=== PATIENT | female | born 1930 | race Caucasian/White ===

== ENCOUNTER 2018-09-26 14:10 | Inpatient (IN) ==
[2018-09-26] MEDS ORDERED: Sodium Chlor 0.9% Inj 500 ML IV.SIG ONE (14:46)
--- NOTE | 2018-09-26 14:59 | ED ---
HPI General Chief complaint: Weakness Stated complaint: Weakness Time Seen by Provider: 09/26/18 14:15 Source: patient and RN notes reviewed Mode of arrival: ambulatory Limitations: no limitations History of Present Illness HPI Narrative: 88-year-old female presents to the emergency department sent from [facility] for evaluation of generalized weakness. Patient had a pacemaker placed in [facility] on Sunday and was transferred on Sunday to the rehab facility. She states that yesterday she started with a stomachache, chills and she slept all day. She denies any fever. She states she has been having these intermittent stomachaches recently. She has recently had an endoscopy in May which she states showed polyps which were removed. She states that she is generally weak today. She states that she normally is generally weak after she has a stomach aches. She denies any headache. No visual changes. She denies any chest pain or shortness of breath. No palpitations. She denies any current abdominal pain. She denies nausea, vomiting, diarrhea. She states she had a bowel movement this morning and denies blood in her stool. 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 She does have history of CAD, GERD, CHF, A. fib. Moderate severity. MD Complaint: Reports generalized weakness Onset (ago): day(s) (1) Duration: constant Location: Reports generalized Migration: Reports none Severity: moderate Relieving factors: none Exacerbating factors: none Context: Reports recent illness Associated symptoms: Reports denies other symptoms; Denies chest pain, confusion , dark stools, diaphoresis, dysuria, easy bruising, fever/chills, headaches, loss of appetite, nausea/vomiting, myalgias, rash, shortness of breath and syncope Related Data Home Medications Medication Instructions Recorded Confirmed Lactobacillus acidoph-pectin 1 tab PO DAILY 09/26/18 09/26/18 alendronate [Fosamax] 70 mg PO QWEEK 09/26/18 09/26/18 apixaban [Eliquis] 5 mg PO BID 09/26/18 09/26/18 aspirin 81 mg PO DAILY 09/26/18 09/26/18 bisacodyl [Dulcolax (bisacodyl)] 10 mg DC DAILY PRN 09/26/18 09/26/18 cetirizine [Zyrtec] 10 mg PO DAILY 09/26/18 09/26/18 lisinopril 10 mg PO DAILY 09/26/18 09/26/18 magnesium citrate [Citroma] 296 ml PO QAM PRN 09/26/18 09/26/18 magnesium hydroxide [Milk of 30 ml PO HS PRN 09/26/18 09/26/18 Magnesia] metoprolol tartrate 25 mg PO BID 09/26/18 09/26/18 multivitamin with minerals 1 tab PO DAILY 09/26/18 09/26/18 omeprazole 20 mg PO DAILY 09/26/18 09/26/18 polyethylene glycol 3350 [GlycoLax] 17 gm PO DAILY 09/26/18 09/26/18 sodium phosphates [Enema 118 ml DC DAILY 09/26/18 09/26/18 Disposable] ursodiol 300 mg PO DAILY 09/26/18 09/26/18 Allergies Allergy/AdvReac Type Severity Reaction Status Date / Time Sulfa (Sulfonamide Allergy Rash Verified 09/26/18 14:19 Antibiotics) Review of Systems ROS: all other systems reviewed are negative [facility] Medical History Medical History Pacemaker (Acute) Dyspnea (Acute) Edema (Acute) GERD (gastroesophageal reflux disease) (Acute) Heart failure (Acute) Hypertension (Acute) Nonrheumatic aortic (valve) stenosis (Acute) Osteoporosis (Acute) Paroxysmal atrial fibrillation (Acute) Rheumatoid arthritis (Acute) Unsteadiness on feet (Acute) Weakness (Acute) Family History Family History Other CVA (cerebral vascular accident) Family history of acute myocardial infarction Social History Social History Substance History: No History of Abuse Second Hand Smoke Exposure: No Smoking Status: Never smoker How Often Do You Have a Drink Containing Alcohol: Never Hx Recent Travel: No Recent Travel in [facility] within the Last 8 Weeks: No Recent Out of Country Travel within the Last 8 Weeks: No Immunization History Tetanus Immunization: Unsure Exam Narrative Exam Narrative: GENERAL: Well-nourished, well-developed elderly female patient, afebrile SKIN: Focused skin assessment warm/dry. HEAD: Normocephalic. Atraumatic. EYES: No scleral icterus. No injection or drainage. NECK: Supple, trachea midline. No JVD or lymphadenopathy. CARDIOVASCULAR: Regular rate and rhythm without murmurs, gallops, or rubs. Bilateral radial and pedal pulses are 2+ RESPIRATORY: Breath sounds equal bilaterally. No accessory muscle use. Lung sounds are clear to auscultation GASTROINTESTINAL: Abdomen soft, non-tender, nondistended. MUSCULOSKELETAL: No cyanosis, or edema. Bilateral upper and lower extremity strength 5/5. All extremities are neurovascularly intact. BACK: Nontender without obvious deformity. No CVA tenderness. Course Initial Documented Vital Signs Temperature 97.8 F 09/26/18 14:19 Pulse Rate 59 L 09/26/18 14:19 Respiratory Rate 17 09/26/18 14:19 Blood Pressure 133/64 09/26/18 14:19 Pulse Oximetry 100 09/26/18 14:19 Last Documented Vital Signs Temperature 97.5 F L 09/28/18 00:00 Pulse Rate 60 09/28/18 00:00 Respiratory Rate 16 09/28/18 00:00 Blood Pressure 144/65 H 09/28/18 00:00 Pulse Oximetry 96 09/28/18 00:00 Medical Decision Making BEAR Attestation BEAR supervised visit: Yes Attestation: No signs of acute surgical abdomen MDM Narrative Medical decision making narrative: consideration for ERCP given the suspicion for choledocholithiasis based on [id number] female presents to the emergency department for evaluation of generalized weakness that started yesterday. She reports having a stomachache with history of the same in the past. She states she generally feels weak afterwards. She denies any other symptoms at this time. She does appear well. EKG shows electronic atrial pacemaker, heart rate 59. IV access obtained. CBC, CMP, lipase, magnesium, CK, troponin, PTT, PT/ INR are ordered and pending. Chest x-ray, CT abdomen/pelvis without contrast ordered and pending. Patient is given normal saline 500 mL bolus. CBC shows slight anemia with hemoglobin 10.4, hematocrit 30.6. CMP shows BUN 19 , creatinine 1.15, hyperglycemia 115, bilirubin 1.1, AST 159, ALT 179, alkaline phosphatase 528. Lipase is 84. Magnesium is 2.0. CK is 33. Troponin is 0.05. PTT is 29.6. PT/INR is 11.8/1.2. Chest x-ray shows no acute cardiopulmonary disease, left-sided pacemaker. CT abdomen/pelvis shows Round hyperdensity in the expected region of the distal common bile duct measuring 16 mm consistent with probable choledocholithiasis. ERCP would be helpful for further evaluation and possible treatment of this finding if clinically indicated; Dilatation and pneumobilia involving the central intrahepatic and extrahepatic dilatation is seen; Multiple calcified nonobstructing left renal calculi; Bilateral renal cysts; Small umbilical hernia; Uncomplicated colonic diverticulosis; Degenerative changes and scoliosis of the thoracolumbar spine are noted; Grade I anterolisthesis of L5 in relation to S1; Degenerative changes involving the hips are noted bilaterally; Coronary artery calcifications ; Chronic interstitial changes involving the visualized lung bases. Ultrasound of the gallbladder is completed which shows the common bile duct is dilated to 14 mm, though the distal common bile duct cannot be visualized due to shadowing from bowel gas, recommend, cholecystectomy, right upper pole renal cyst. I discussed the case with attending physician's, Dr. Galdamez's PAAnjelica. She accepted patient for admission. General surgery is paged for consultation. I spoke to Dr. Duval who recommends MRCP, consult GI. Medical Screen Exam Complete: Yes Emergency Medical Condition: Yes Differential Diagnosis Differential Diagnosis: dehydration vs. electrolyte abnormality vs. ACS vs. UTI Medical Records Medical records reviewed: Yes I reviewed the patient's medical records. Lab Data Result diagrams: 09/26/18 14:55 09/26/18 14:55 Lab Results 09/26/18 09/26/18 09/26/18 Range/Units 14:55 14:55 14:55 WBC 7.4 (4.0-11.0) th/mm3 RBC 3.30 L (4.00-5.30) mil/mm3 Hgb 10.4 L (11.6-15.3) gm/dL Hct 30.6 L (35.0-46.0) % MCV 92.7 (80.0-100.0) fL MCH 31.6 (27.0-34.0) pg MCHC 34.0 (32.0-36.0) % RDW 14.6 (11.6-17.2) % Plt Count 195 (150-450) th/mm3 MPV 8.0 (7.0-11.0) fL Neut % (Auto) 73.6 H (16.0-70.0) % Lymph % (Auto) 17.2 (9.0-44.0) % [place] % (Auto) 8.3 H (0.0-8.0) % Eos % (Auto) 0.4 (0.0-4.0) % Baso % (Auto) 0.5 (0.0-2.0) % Neut # (Auto) 5.5 (1.8-7.7) th/mm3 Lymph # (Auto) 1.3 (1.0-4.8) th/mm3 [place] # (Auto) 0.6 (0.0-0.9) th/mm3 Eos # (Auto) 0.0 (0.0-0.4) th/mm3 Baso # (Auto) 0.0 (0.0-0.2) th/mm3 WBC Differential . Differential Comment Auto diff final PT 11.8 H (9.8-11.6) sec INR 1.2 Ratio APTT 29.6 (23.4-31.7) sec Sodium 137 (136-145) meq/L Potassium 4.2 (3.5-5.1) meq/L Chloride 106 (98-107) meq/L Carbon Dioxide 25.6 (21.0-32.0) meq/L Anion Gap 5 (5-15) meq/L BUN 19 H (7-18) mg/dL Creatinine 1.15 H (0.50-1.00) mg/dL Estimated GFR 45 L (>89) mL/min Random Glucose 115 H (74-106) mg/dL Calcium 8.4 L (8.5-10.1) mg/dL Magnesium 2.0 (1.5-2.5) mg/dL Total Bilirubin 1.1 H (0.2-1.0) mg/dL AST 159 H (15-37) U/L ALT 179 H (10-53) U/L Alkaline Phosphatase 528 H (45-117) U/L Total Creatine Kinase 33 (26-192) U/L Troponin I 0.05 (0.02-0.05) ng/mL Total Protein 6.6 (6.4-8.2) g/dL Albumin 2.5 L (3.4-5.0) g/dL Lipase 84 (73-393) U/L Urine Color (Yellw/Straw) Urine Clarity (Clear) Urine pH (5.0-8.5) Ur Specific [place] (1.002-1.035) Urine Protein (Neg-Trace) mg/dL Urine Glucose (UA) (Negative) mg/dL Urine Ketones (Negative) mg/dL Urine Occult Blood (Negative) Urine Nitrate (Negative) Urine Bilirubin (Negative) Urine Urobilinogen (Less than 2) mg/dL Ur Leukocyte Esterase (Negative) Urine RBC (0-3) /hpf Urine WBC (0-5) /hpf Urine Mucus (Occasional) /lpf Micro UA Comment Ur Microscopic Review Urine Culture Comments 09/26/18 Range/Units 17:34 WBC (4.0-11.0) th/mm3 RBC (4.00-5.30) mil/mm3 Hgb (11.6-15.3) gm/dL Hct (35.0-46.0) % MCV (80.0-100.0) fL MCH (27.0-34.0) pg MCHC (32.0-36.0) % RDW (11.6-17.2) % Plt Count (150-450) th/mm3 MPV (7.0-11.0) fL Neut % (Auto) (16.0-70.0) % Lymph % (Auto) (9.0-44.0) % [place] % (Auto) (0.0-8.0) % Eos % (Auto) (0.0-4.0) % Baso % (Auto) (0.0-2.0) % Neut # (Auto) (1.8-7.7) th/mm3 Lymph # (Auto) (1.0-4.8) th/mm3 [place] # (Auto) (0.0-0.9) th/mm3 Eos # (Auto) (0.0-0.4) th/mm3 Baso # (Auto) (0.0-0.2) th/mm3 WBC Differential Differential Comment PT (9.8-11.6) sec INR Ratio APTT (23.4-31.7) sec Sodium (136-145) meq/L Potassium (3.5-5.1) meq/L Chloride (98-107) meq/L Carbon Dioxide (21.0-32.0) meq/L Anion Gap (5-15) meq/L BUN (7-18) mg/dL Creatinine (0.50-1.00) mg/dL Estimated GFR (>89) mL/min Random Glucose (74-106) mg/dL Calcium (8.5-10.1) mg/dL Magnesium (1.5-2.5) mg/dL Total Bilirubin (0.2-1.0) mg/dL AST (15-37) U/L ALT (10-53) U/L Alkaline Phosphatase (45-117) U/L Total Creatine Kinase (26-192) U/L Troponin I (0.02-0.05) ng/mL Total Protein (6.4-8.2) g/dL Albumin (3.4-5.0) g/dL Lipase (73-393) U/L Urine Color Yellow (Yellw/Straw) Urine Clarity Clear (Clear) Urine pH 5.0 (5.0-8.5) Ur Specific [place] 1.016 (1.002-1.035) Urine Protein Negative (Neg-Trace) mg/dL Urine Glucose (UA) Negative (Negative) mg/dL Urine Ketones Negative (Negative) mg/dL Urine Occult Blood Negative (Negative) Urine Nitrate Negative (Negative) Urine Bilirubin Negative (Negative) Urine Urobilinogen 0.2 (Less than 2) mg/dL Ur Leukocyte Esterase Negative (Negative) Urine RBC 2 (0-3) /hpf Urine WBC Less than 1 (0-5) /hpf Urine Mucus Few H (Occasional) /lpf Micro UA Comment Cath-culture not ind Ur Microscopic Review Not Reportable Urine Culture Comments Cath-cult not ind Imaging Data Radiologist's impression: Abdomen/Pelvis CT 09/26/18 14:46 CONCLUSION: 1. Round hyperdensity in the expected region of the distal common bile duct measuring 16 mm consistent with probable choledocholithiasis. ERCP would be helpful for further evaluation and possible treatment of this finding if clinically indicated. 2. Dilatation and pneumobilia involving the central intrahepatic and extrahepatic dilatation is seen. 3. Multiple calcified nonobstructing left renal calculi. 4. Bilateral renal cysts. 5. Small umbilical hernia. 6. Uncomplicated colonic diverticulosis. 7. Degenerative changes and scoliosis of the thoracolumbar spine are noted. 8. Grade I anterolisthesis of L5 in relation to S1. 9. Degenerative changes involving the hips are noted bilaterally. 10. Coronary artery calcifications. 11. Chronic interstitial changes involving the visualized lung bases. Chest X-Ray 09/26/18 14:46 CONCLUSION: 1. No acute cardiopulmonary disease. 2. Left-sided pacemaker. Gallbladder Ultrasound 09/26/18 15:39 CONCLUSION: 1. The common bile duct is dilated to 14 mm, though the distal common bile duct cannot be visualized due to shadowing from bowel gas. Recommend consideration for ERCP given the suspicion for choledocholithiasis based on CT. 2. Cholecystectomy. 3. Right upper pole renal cyst. Discharge Plan Discharge Disposition Patient Disposition: ED Admit(ED Internal Use Only) Discharge Order Discharge Orders: ED Use Only Admit Order (Routine); Ordered 09/26/18 Ordered By: Nilsa Bhandari Discharge Details Diagnosis: Choledocholithiasis Physicians Team ED Provider: Westley Shirley ED Midlevel Provider: Nilsa Bhandari Primary Care Provider: SARAH, Attending Provider: Luis Fernando Galdamez Other Providers: Scarlett Parada ; Prasanth Duval ; [facility] Status ED Status: Left Department Discharge Information Discharge Date/Time: 09/26/18 20:20
--- NOTE | 2018-09-26 15:08 | XR ---
EXAM DATE: 09/26/2018 3:02 PM EST AGE/SEX: 88 years / Female INDICATIONS: Short of breath and weakness. CLINICAL DATA: This is the patient's initial encounter. Patient reports that signs and symptoms have been present for 1 day and indicates a pain score of 0/10. MEDICAL/SURGICAL HISTORY: None. Pacemaker. COMPARISON: No prior exams available for comparison. FINDINGS: A single AP view of the chest demonstrates the lungs to be symmetrically aerated without evidence of mass, infiltrate or effusion. Left-sided pacemaker placement with 2 intact leads. Pulmonary vasculari ty normal. Heart normal in size The cardiomediastinal contours are unremarkable. Osseous structures are intact. CONCLUSION: 1. No acute cardiopulmonary disease. 2. Left-sided pacemaker. Electronically signed by: Kamron Churchill MD Board Certified Radiologist 09/26/2018 3:06 PM EST
[2018-09-26 15:10] LABS: Baso % (Auto) 0.5 % (0.0-2.0); Eos % (Auto) 0.4 % (0.0-4.0); Hematocrit 30.6 % (35.0-46.0); Hemoglobin 10.4 gm/dL (11.6-15.3); Lymph # (Auto) 1.3 th/mm3 (1.0-4.8); Lymph % (Auto) 17.2 % (9.0-44.0); Mean Corpuscular Hemoglobin 31.6 pg (27.0-34.0); Mean Corpuscular Volume 92.7 fL (80.0-100.0); Mono # (Auto) 0.6 th/mm3 (0.0-0.9); Mono % (Auto) 8.3 % (0.0-8.0); Neut # (Auto) 5.5 th/mm3 (1.8-7.7); Neut % (Auto) 73.6 % (16.0-70.0); Platelet Count 195 th/mm3 (150-450); Red Cell Distribution Width 14.6 % (11.6-17.2); White Blood Count 7.4 th/mm3 (4.0-11.0)
[2018-09-26 15:23] LABS: Activated Partial Thrombo Time 29.6 sec (23.4-31.7); INR 1.2 Ratio; Prothrombin Time 11.8 sec (9.8-11.6)
--- NOTE | 2018-09-26 15:29 | CT ---
EXAM DATE: 09/26/2018 3:15 PM EST AGE/SEX: 88 years / Female INDICATIONS: Pacemaker placed Sunday, complains of weakness since yesterday CLINICAL DATA: This is the patient's initial encounter. Patient reports that signs and symptoms have been present for 4 - 6 days and indicates a pain score of 0/10. MEDICAL/SURGICAL HISTORY: Hypertension. Gastroesophageal reflux disease. Pacemaker. Cholecyst ectomy. RADIATION DOSE: 19.13 CTDI (mGy) COMPARISON: No prior exams available for comparison. TECHNIQUE: Multiple contiguous axial images were obtained through the abdomen. Images were obtained using multiple row detector helical technique. Using automated exposure control and adjustment of the mA and/or kV according to patient size, radiation dose was kept as low as reasonably achievable to o btain optimal diagnostic quality images. DICOM format image data is available electronically for rev iew and comparison. FINDINGS: Lower Lungs: Chronic interstitial changes are noted involving the visualized lung bases. Coronary art popeye calcifications are noted. Liver: There is evidence of pneumobilia as well as dilatation of the central intrahepatic and extrahe patic biliary system. Round hyperdensity in the expected region of the distal common bile duct measur ing 16 mm consistent with probable choledocholithiasis. ERCP would be helpful for further evaluation and possible treatment of this finding if clinically indicated. Spleen: Multiple calcified granulomas are noted within the spleen. Pancreas: Unremarkable without mass or calcification. Kidneys: Multiple calcified nonobstructing left renal calculi are noted with the largest measuring 4 mm. Bilateral renal cysts are noted with the largest on the left measuring 5.6 cm. No hydronephrosis is noted. Adrenal Glands: Unremarkable. Aorta: The aorta and proximal iliac vessels are grossly unremarkable without aneurysmal dilation. Bowel/Mesentery: Uncomplicated colonic diverticulosis is noted. Abdominal Wall: Small umbilical hernia containing only fat is noted. Retroperitoneum: No evidence of adenopathy in the retrocrural, para-aortic, or deep pelvic regions. Bladder: Contours are smooth. Reproductive Organs: No abnormal masses or calcifications seen. Inguinal: The inguinal region is unremarkable without evidence of adenopathy. Bony Structures: Degenerative changes and scoliosis of the thoracolumbar spine are noted. Degenerati ve changes involving the hips are noted bilaterally. Grade I anterolisthesis of L5 in relation to S1. CONCLUSION: 1. Round hyperdensity in the expected region of the distal common bile duct measuring 16 mm consiste nt with probable choledocholithiasis. ERCP would be helpful for further evaluation and possible treat ment of this finding if clinically indicated. 2. Dilatation and pneumobilia involving the central intrahepatic and extrahepatic dilatation is seen . 3. Multiple calcified nonobstructing left renal calculi. 4. Bilateral renal cysts. 5. Small umbilical hernia. 6. Uncomplicated colonic diverticulosis. 7. Degenerative changes and scoliosis of the thoracolumbar spine are noted. 8. Grade I anterolisthesis of L5 in relation to S1. 9. Degenerative changes involving the hips are noted bilaterally. 10. Coronary artery calcifications. 11. Chronic interstitial changes involving the visualized lung bases. Electronically signed by: Devaughn Quintanilla MD Board Certified Radiologist 09/26/2018 3:28 PM EST
[2018-09-26 15:45] LABS: Alanine Aminotransferase 179 U/L (10-53); Albumin 2.5 g/dL (3.4-5.0); Anion Gap 5 meq/L (5-15); Aspartate Aminotransferase 159 U/L (15-37); Blood Urea Nitrogen 19 mg/dL (7-18); Calcium 8.4 mg/dL (8.5-10.1); Carbon Dioxide 25.6 meq/L (21.0-32.0); Chloride 106 meq/L (98-107); Glomerular Filtration Rate 45 mL/min (>89); Glucose,Random 115 mg/dL (74-106); Lipase 84 U/L (73-393); Potassium 4.2 meq/L (3.5-5.1); Sodium 137 meq/L (136-145)
[2018-09-26 15:46] LABS: Alkaline Phosphatase 528 U/L (45-117); Total Protein 6.6 g/dL (6.4-8.2); Troponin I 0.05 ng/mL (0.02-0.05)
[2018-09-26 15:47] LABS: Creatine Kinase 33 U/L (26-192)
--- NOTE | 2018-09-26 16:27 | US ---
EXAM DATE: 09/26/2018 4:20 PM EST AGE/SEX: 88 years / Female INDICATIONS: Pain and abnormal prior imaging. CLINICAL DATA: This is the patient's initial encounter. Patient reports that signs and symptoms have been present for 2 days and indicates a pain score of 3/10. MEDICAL/SURGICAL HISTORY: Gastroesophageal reflux disease. Hypertension. Rheumatoid arthritis . Dyspnea, Edema, Heart Failure, Nonrheumatic Aortic valve stenosis, Osteoporosis, Pacemaker, Paroxy smal Atrial Fibrillation, Weakness. . COMPARISON: [facility], CT ABDOMEN & PELVIS W/O CONTRAST, 09/26/2018. . MEASUREMENTS: Liver:__ 14.5 cm. Common Bile Duct:__ 14 mm. Right kidney: 10.3 x 5.5 x 4.9 cm. FINDINGS: Liver: Echogenicity is within normal limits. No focal lesion identified. Portal Vein: Hepatopedal flow seen in portal vein. Common Duct: The common bile duct is dilated to 14 mm. The distal common bile duct is not visualized due to shadowing from bowel gas. Gallbladder: Surgically absent. Pancreas: The visualized portions are within normal limits. Right Kidney: The lower pole of the right kidney is visualized due to shadowing from bowel gas. No h ydronephrosis. There is a 2.8 cm upper pole cyst. Other: None. CONCLUSION: 1. The common bile duct is dilated to 14 mm, though the distal common bile duct cannot be visualized due to shadowing from bowel gas. Recommend consideration for ERCP given the suspicion for choledocho lithiasis based on CT. 2. Cholecystectomy. 3. Right upper pole renal cyst. Electronically signed by: Tejal Bosch MD Board Certified Radiologist 09/26/2018 4:26 PM EST
[2018-09-26] MEDS ORDERED: Bisacodyl 10 MG Supp RECTAL PRN (17:07)
[2018-09-26] MEDS ORDERED: Piperacil/Tazo 3.375 GM Premix 3.375 GM/50 ML PIGGYBACK IV.SIG ONE (18:11)
[2018-09-26] MEDS ORDERED: Acetaminophen 325 MG Tablet PO PRN (18:37)
[2018-09-26 18:38] LABS: Bilirubin,Urine Negative (Negative); Color,Urine Yellow (Yellw/Straw); Glucose,Urine (UA) Negative (Negative); Leukocyte Esterase,Urine Negative (Negative); Mucus,Urine Few /lpf (Occasional); Nitrite,Urine Negative (Negative); Specific Gravity,Urine 1.016 (1.002-1.035)
[2018-09-26 18:39] LABS: Clarity,Urine Clear (Clear)
[2018-09-26 18:40] LABS: Urobilinogen,Urine 0.2 mg/dL (Less than 2)
--- NOTE | 2018-09-26 19:23 | ECG ---
Date Performed: 09/26/2018 Time Performed: 14:26:35 PTAGE: 88 years EKG: ELECTRONIC ATRIAL PACEMAKER ABNORMAL RHYTHM ECG NO PREVIOUS TRACING DOCTOR: Josr Galloway Interpretating Date/Time 09/26/2018 19:21:57
[2018-09-26] MEDS: Metoprolol Tartrate 25 MG Tablet PO SCH (21:20)
[2018-09-27] MEDS: Metoprolol Tartrate 25 MG Tablet PO SCH ×2 (09:24→20:39)
[2018-09-27] MEDS: Lactobacillus Acidophilus/L. Spores Tablet PO SCH (09:24)
[2018-09-27] MEDS: Lisinopril 10 MG Tablet PO SCH (09:25)
[2018-09-27] MEDS: Pantoprazole Sodium 20 MG DR Tablet PO SCH (09:25)
[2018-09-27] MEDS: Multivitamin/Minerals Therapeutic Tablet PO SCH (09:25)
--- NOTE | 2018-09-27 09:59 | P.HPFP ---
History of Present Illness Service: Family Medicine Primary Care Physician: UNKNOWN Chief Complaint: Back pain History of Present Illness: 88-year-old female presents to the emergency department sent from [facility] for evaluation of generalized weakness. Patient had a pacemaker placed in [facility] on Sunday and was transferred on Sunday to the rehab facility. She states that yesterday she started with a stomachache , chills and she slept all day. She denies any fever. She states she has been having these intermittent stomachaches and back pains recently. She has recently had an endoscopy in May which she states showed polyps which were removed. She states that she is generally weak today. She states that she normally is generally weak after she has a stomach aches. She denies any headache. No visual changes. She denies any chest pain or shortness of breath. No palpitations. She denies any current abdominal pain. She denies nausea, vomiting, diarrhea. She states she had a bowel movement this morning and denies blood in her stool. 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 She does have history of CAD, GERD, CHF, A. fib. Moderate severity. - Diagnosis (1) Choledocholithiasis Inpatient Certification: I certify that the inpatient services were ordered in accordance with Medicare regulations governing the order. This includes certification that hospital inpatient services are reasonable and necessary and in the case of services not specified as inpatient-only under 42 CFR 419.22(n), that they are appropriately provided as inpatient services in accordance to with the 2-midnight benchmark under 43 CFR 412.3(e) Estimated Total Length of Stay (Days): 3 Plans for Post Hospital Care: SNF Review of Systems Constitutional: Reports daytime sleepiness, Reports lack of energy, Reports weakness Eyes: Denies blurry vision Ears, Nose, Mouth, and Throat: Denies abnormal hearing, Denies difficulty swallowing, Denies headache(s) Cardiovascular: Denies chest pain, Denies lightheadedness Respiratory: Denies chest congestion, Denies cough Gastrointestinal: Reports abdominal pain, Reports nausea, Denies black, tarry stools, Denies bright, red blood in stools Genitourinary: Denies blood in urine, Denies painful urination Musculoskeletal: Reports muscle weakness Neurologic: Reports unsteadiness, Denies abnormal movements, Denies convulsions , Denies tingling/numbness/burning sensations, Denies tremor(s) Psychiatric: Denies confusion, Denies depression PMFSH - History History Provided By: Patient - Medical History Medical History: Medical History (Last Updated 09/27/18 @ 09:54 by Darian Gardiner) Pacemaker (Acute) Dyspnea Edema GERD (gastroesophageal reflux disease) Heart failure Hypertension Nonrheumatic aortic (valve) stenosis Osteoporosis Paroxysmal atrial fibrillation Rheumatoid arthritis Unsteadiness on feet Weakness - Surgical History Surgical History: Surgical History (Last Reviewed 09/27/18 @ 09:56 by Darian Gardiner) H/O aortic valve replacement S/P cholecystectomy - Social History I have reviewed the patient's Social History: Yes - Tobacco History Second Hand Smoke Exposure: No Tobacco Use In Past 30 Days: No Smoking Status: Never smoker - Alcohol History How Often Do You Have a Drink Containing Alcohol: Never - Substance Use History Substance History: No History of Abuse - Travel History History of Recent Travel: No Recent Travel in the [place] Within the Last 8 Weeks: No Recent Travel Out of the Country Within the Last 8 Weeks: No - Immunization History Tetanus Immunization: Unsure Hx Influenza Vaccine This Season: Yes Medications and Allergies Active Medications: Active Medications Acetaminophen (Tylenol) 650 mg PO Q4H PRN PRN Reason: Temp > 100.4 Al Hydroxide/Mg Hydroxide (Milk Of Magnmónica Liq) 30 ml PO HS PRN PRN Reason: If no BM in 3 days Apixaban (Eliquis) 5 mg PO BID [facility] Last Admin: 09/27/18 09:26 Dose: Not Given Aspirin (Ecotrin) 81 mg PO DAILY [facility] Last Admin: 09/27/18 09:25 Dose: 81 mg Bisacodyl (Dulcolax Supp) 10 mg RECTAL DAILY PRN PRN Reason: Constipation Cetirizine HCl (Zyrtec) 10 mg PO DAILY [facility] Last Admin: 09/27/18 09:25 Dose: 10 mg Lactobacillus Acidophilus (Lactinex) 1 tab PO DAILY [facility] Last Admin: 09/27/18 09:24 Dose: 1 tab Lisinopril (Prinivil) 10 mg PO DAILY [facility] Last Admin: 09/27/18 09:25 Dose: 10 mg Metoprolol Tartrate (Lopressor) 25 mg PO BID [facility] Last Admin: 09/27/18 09:24 Dose: 25 mg Multivitamins/Minerals (Theragran-M) 1 tab PO DAILY [facility] Last Admin: 09/27/18 09:25 Dose: 1 tab Ondansetron HCl (Zofran Inj) 4 mg IV.PUSH Q6H PRN PRN Reason: NAUSEA OR VOMITING Pantoprazole Sodium (Protonix) 20 mg PO DAILY [facility] Last Admin: 09/27/18 09:25 Dose: 20 mg Sodium Chloride (Ns Flush) 2 ml IV.FLUSH PRN PRN PRN Reason: FLUSH AFTER USING IV ACCESS Sodium Chloride (Ns Flush) 2 ml IV.FLUSH BID [facility] Last Admin: 09/27/18 09:25 Dose: 2 ml Sodium Chloride (Ns Flush) 2 ml IV.FLUSH PRN PRN PRN Reason: FLUSH AFTER USING IV ACCESS Ursodiol (Actigall) 300 mg PO DAILY [facility] Last Admin: 09/27/18 09:25 Dose: 300 mg Allergies Allergy/AdvReac Type Severity Reaction Status Date / Time Sulfa (Sulfonamide Allergy Rash Verified 09/26/18 14:19 Antibiotics) Home Medications Medication Instructions Recorded Confirmed Type Lactobacillus acidoph-pectin 1 tab PO DAILY 09/26/18 09/26/18 History alendronate [Fosamax] 70 mg PO QWEEK 09/26/18 09/26/18 History apixaban [Eliquis] 5 mg PO BID 09/26/18 09/26/18 History aspirin 81 mg PO DAILY 09/26/18 09/26/18 History bisacodyl [Dulcolax (bisacodyl)] 10 mg AK DAILY PRN 09/26/18 09/26/18 History cetirizine [Zyrtec] 10 mg PO DAILY 09/26/18 09/26/18 History lisinopril 10 mg PO DAILY 09/26/18 09/26/18 History magnesium citrate [Citroma] 296 ml PO QAM PRN 09/26/18 09/26/18 History magnesium hydroxide [Milk of 30 ml PO HS PRN 09/26/18 09/26/18 History Magnesia] metoprolol tartrate 25 mg PO BID 09/26/18 09/26/18 History multivitamin with minerals 1 tab PO DAILY 09/26/18 09/26/18 History omeprazole 20 mg PO DAILY 09/26/18 09/26/18 History polyethylene glycol 3350 [GlycoLax] 17 gm PO DAILY 09/26/18 09/26/18 History sodium phosphates [Enema 118 ml AK DAILY 09/26/18 09/26/18 History Disposable] ursodiol 300 mg PO DAILY 09/26/18 09/26/18 History Exam Vital signs: Vital Signs 09/26/18 14:19 09/26/18 14:35 09/26/18 14:46 Temperature 97.8 F Pulse Rate 59 L 60 Respiratory Rate 17 Blood Pressure 133/64 Pulse Oximetry 100 99 09/26/18 17:09 09/26/18 19:41 09/26/18 20:46 Temperature 97.3 F L Pulse Rate 60 60 60 Respiratory Rate 16 17 17 Blood Pressure 153/66 H 148/69 H 167/72 H Pulse Oximetry 99 97 96 09/27/18 00:00 09/27/18 04:33 09/27/18 08:00 Temperature 98.5 F 98.4 F 97.7 F Pulse Rate 60 60 60 Respiratory Rate 16 16 16 Blood Pressure 160/72 H 148/71 H 155/72 H Pulse Oximetry 94 L 96 95 Intake & Output 09/26/18 09/27/18 09/27/18 18:59 06:59 18:59 Intake Total 550 / 550 Balance 550 / 550 Weight 70.307 kg 70 kg Intake: IV 550 / 550 Zosyn 3.375 GM Premix 3.375 gm 50 / 50 In 50 ml @ 100 mls/hr IV.SIG ONCE ONE Rx#:[id number] NS Inj 500 ML @ Wide Open IV. 500 / 500 SIG BOLUS ONE Rx#:[id number] Other: # Voids 4 # Bowel Movements 1 Weight On Admission 70.307 kg - Constitutional no acute distress - Routine HEENT Exam Head: Present: normocephalic, atraumatic Eye: Present: PERRL, normal accommodation ENT: Present: mucous membranes moist - Routine Neck Exam Present: supple, full ROM - Routine Respiratory Exam Present: CTA bilaterally - Routine Cardiovascular Exam Present: RRR, S1, S2, murmur - Routine Abdominal Exam Present: soft, normoactive bowel sounds - Routine Extremities Exam Absent: cyanosis, edema - Routine Skin Exam Present: intact - Routine Neurological Exam Present: alert, oriented X3 Results - Labs Result diagrams: 09/26/18 14:55 09/26/18 14:55 Abnormal lab results 09/26/18 09/26/18 09/26/18 Range/Units 14:55 14:55 14:55 RBC 3.30 L (4.00-5.30) mil/mm3 Hgb 10.4 L (11.6-15.3) gm/dL Hct 30.6 L (35.0-46.0) % Neut % (Auto) 73.6 H (16.0-70.0) % [place] % (Auto) 8.3 H (0.0-8.0) % PT 11.8 H (9.8-11.6) sec BUN 19 H (7-18) mg/dL Creatinine 1.15 H (0.50-1.00) mg/dL Estimated GFR 45 L (>89) mL/min Random Glucose 115 H (74-106) mg/dL Calcium 8.4 L (8.5-10.1) mg/dL Total Bilirubin 1.1 H (0.2-1.0) mg/dL AST 159 H (15-37) U/L ALT 179 H (10-53) U/L Alkaline Phosphatase 528 H (45-117) U/L Albumin 2.5 L (3.4-5.0) g/dL Urine Mucus (Occasional) /lpf 09/26/18 Range/Units 17:34 RBC (4.00-5.30) mil/mm3 Hgb (11.6-15.3) gm/dL Hct (35.0-46.0) % Neut % (Auto) (16.0-70.0) % [place] % (Auto) (0.0-8.0) % PT (9.8-11.6) sec BUN (7-18) mg/dL Creatinine (0.50-1.00) mg/dL Estimated GFR (>89) mL/min Random Glucose (74-106) mg/dL Calcium (8.5-10.1) mg/dL Total Bilirubin (0.2-1.0) mg/dL AST (15-37) U/L ALT (10-53) U/L Alkaline Phosphatase (45-117) U/L Albumin (3.4-5.0) g/dL Urine Mucus Few H (Occasional) /lpf Short CBC 09/26/18 Range/Units 14:55 WBC 7.4 (4.0-11.0) th/mm3 Hgb 10.4 L (11.6-15.3) gm/dL Hct 30.6 L (35.0-46.0) % Plt Count 195 (150-450) th/mm3 BMP 09/26/18 14:55 Sodium 137 Potassium 4.2 Chloride 106 Carbon Dioxide 25.6 BUN 19 H Creatinine 1.15 H Calcium 8.4 L Cardiac Enzymes 09/26/18 Range/Units 14:55 Total Creatine Kinase 33 (26-192) U/L Troponin I 0.05 (0.02-0.05) ng/mL Liver Function 09/26/18 Range/Units 14:55 Total Bilirubin 1.1 H (0.2-1.0) mg/dL AST 159 H (15-37) U/L ALT 179 H (10-53) U/L Alkaline Phosphatase 528 H (45-117) U/L Albumin 2.5 L (3.4-5.0) g/dL Urine 09/26/18 Range/Units 17:34 Urine Color Yellow (Yellw/Straw) Urine Clarity Clear (Clear) Urine pH 5.0 (5.0-8.5) Ur Specific [place] 1.016 (1.002-1.035) Urine Protein Negative (Neg-Trace) mg/dL Urine Glucose (UA) Negative (Negative) mg/dL - Imaging Impressions Abdomen/Pelvis CT 09/26/18 14:46 CONCLUSION: 1. Round hyperdensity in the expected region of the distal common bile duct measuring 16 mm consistent with probable choledocholithiasis. ERCP would be helpful for further evaluation and possible treatment of this finding if clinically indicated. 2. Dilatation and pneumobilia involving the central intrahepatic and extrahepatic dilatation is seen. 3. Multiple calcified nonobstructing left renal calculi. 4. Bilateral renal cysts. 5. Small umbilical hernia. 6. Uncomplicated colonic diverticulosis. 7. Degenerative changes and scoliosis of the thoracolumbar spine are noted. 8. Grade I anterolisthesis of L5 in relation to S1. 9. Degenerative changes involving the hips are noted bilaterally. 10. Coronary artery calcifications. 11. Chronic interstitial changes involving the visualized lung bases. Chest X-Ray 09/26/18 14:46 CONCLUSION: 1. No acute cardiopulmonary disease. 2. Left-sided pacemaker. Gallbladder Ultrasound 09/26/18 15:39 CONCLUSION: 1. The common bile duct is dilated to 14 mm, though the distal common bile duct cannot be visualized due to shadowing from bowel gas. Recommend consideration for ERCP given the suspicion for choledocholithiasis based on CT. 2. Cholecystectomy. 3. Right upper pole renal cyst. Caprini VTE Risk Assessment Caprini VTE Risk Assessment: Moderate/High Risk (score >= 2) Caprini Risk Assessment Model: Point Value = 1 Point Value = 2 Point Value = 3 Point Value = 5 Age 41-60 Minor surgery BMI > 25 kg/m2 Swollen legs Varicose veins or History of unexplained or recurrent spontaneous Oral contraceptives or hormone replacement Sepsis (< 1 month) Serious lung disease, including pneumonia (< 1 month) Abnormal pulmonary function Acute myocardial infarction Congestive heart failure (< 1 month) History of inflammatory bowel disease Medical patient at bed rest Age 61-74 Arthroscopic surgery Major open surgery (> 45 min) Laparoscopic surgery (> 45 min) Malignancy Confined to bed (> 72 hours) Immobilizing plaster cast Central venous access Age >= 75 History of VTE Family history of VTE Factor V Leiden Prothrombin [id number] Lupus anticoagulant Anticardiolipin antibodies Elevated serum homocysteine Heparin-induced thrombocytopenia Other congenital or acquired thrombophilia Stroke (< 1 month) Elective arthroplasty Hip, pelvis, or leg fracture Acute spinal cord injury (< 1 month) Prophylaxis Regimen: Total Risk Factor Score Risk Level Prophylaxis Regimen 0-1 Low Early ambulation 2 Moderate Order ONE of the following: *Sequential Compression Device (SCD) *Heparin 5000 units SQ BID 3-4 Higher Order ONE of the following medications: *Heparin 5000 units SQ TID *Enoxaparin/Lovenox 40 mg SQ daily (WT < 150 kg, CrCl > 30 mL/min) *Enoxaparin/Lovenox 30 mg SQ daily (WT < 150 kg, CrCl > 10-29 mL/min) *Enoxaparin/Lovenox 30 mg SQ BID (WT < 150 kg, CrCl > 30 mL/min) AND/OR *Sequential Compression Device (SCD) 5 or more Highest Order ONE of the following medications: *Heparin 5000 units SQ TID (Preferred with Epidurals) *Enoxaparin/Lovenox 40 mg SQ daily (WT < 150 kg, CrCl > 30 mL/min) *Enoxaparin/Lovenox 30 mg SQ daily (WT < 150 kg, CrCl > 10-29 mL/min) *Enoxaparin/Lovenox 30 mg SQ BID (WT < 150 kg, CrCl > 30 mL/min) AND *Sequential Compression Device (SCD) Assessment and Plan - Assessment (1) Choledocholithiasis Code(s): K80.50 - Calculus of bile duct without cholangitis or cholecystitis without obstruction Status: Acute Plan: ERCP today. - Assessment and Plan ERCP today per GI/Surgery for choledochocholelithiasis Discussed Condition With: patient H&P: Quality - VTE Deep Vein Thrombosis/Pulmonary Embolism Present on Admission: No
--- NOTE | 2018-09-27 10:37 | P.CONGI ---
History of Present Illness Consult date: 09/27/18 Consult reason: Choledocholithiasis Chief complaint: Choledocholithiasis History of Present Illness: Patient is a pleasant 88-year-old female with past medical history significant for GERD, heart failure, hypertension, aortic valve stenosis, osteoporosis, pacemaker, atrial fibrillation and rheumatoid arthritis. Surgical history significant for aortic valve replacement, partial hysterectomy , bladder repair, cholecystectomy, pacemaker insertion and multiple ERCPs(on Ursodiol daily). Patient presented to [facility] emergency room from her custodial facility with report of intermittent abdominal pain with chills and generalized weakness. Patient states that she has been having what she describes to be a dull aching intermittent right upper quadrant abdominal pain since March 2018. Patient endorsed accompanying weakness with nausea. Presently she denies abdominal pain or nausea. Patient states last EGD done in May 2019 out of state in [place] with unremarkable findings. Last colonoscopy per patient was done in 2014 where she underwent perforated bowel with surgical repair. CT scan on arrival showed common bile duct dilatation to 16 mm. Of note, patient endorses that she currently takes Eliquis, last dose 06/2019 8 AM. Our service has been consulted to evaluate patient for ERCP due to choledocholithiasis. <Lorraine Beal - Last Filed: 09/27/18 10:47> Review of Systems All other systems reviewed negative except as stated in HPI <Lorraine Beal - Last Filed: 09/27/18 10:47> PMFSH - History History Provided By: Patient - Medical History Medical History: Medical History (Last Updated 09/27/18 @ 09:54 by Darian Gardiner) Pacemaker (Acute) Dyspnea Edema GERD (gastroesophageal reflux disease) Heart failure Hypertension Nonrheumatic aortic (valve) stenosis Osteoporosis Paroxysmal atrial fibrillation Rheumatoid arthritis Unsteadiness on feet Weakness - Surgical History Surgical History: Surgical History (Last Reviewed 09/27/18 @ 09:56 by Darian Gardiner) H/O aortic valve replacement S/P cholecystectomy - Family History Family History: Family History (Last Updated 09/27/18 @ 09:55 by Darian Gardiner) Other CVA (cerebral vascular accident) Family history of acute myocardial infarction - Tobacco History Second Hand Smoke Exposure: No Tobacco Use In Past 30 Days: No Smoking Status: Never smoker - Alcohol History How Often Do You Have a Drink Containing Alcohol: Never - Substance Use History Substance History: No History of Abuse - Travel History History of Recent Travel: No Recent Travel in the [place] Within the Last 8 Weeks: No Recent Travel Out of the Country Within the Last 8 Weeks: No - Immunization History Tetanus Immunization: Unsure Hx Influenza Vaccine This Season: Yes <Lorraine Beal - Last Filed: 09/27/18 10:47> - Medical History Medical History: Medical History (Last Updated 09/27/18 @ 09:54 by Darian Gardiner) Pacemaker (Acute) Dyspnea Edema GERD (gastroesophageal reflux disease) Heart failure Hypertension Nonrheumatic aortic (valve) stenosis Osteoporosis Paroxysmal atrial fibrillation Rheumatoid arthritis Unsteadiness on feet Weakness - Surgical History Surgical History: Surgical History (Last Reviewed 09/27/18 @ 09:56 by Darian Gardiner) H/O aortic valve replacement S/P cholecystectomy - Family History Family History: Family History (Last Updated 09/27/18 @ 09:55 by Darian Gardiner) Other CVA (cerebral vascular accident) Family history of acute myocardial infarction <Scarlett Parada - Last Filed: 09/27/18 12:36> Medications and Allergies Active Medications: Active Medications Acetaminophen (Tylenol) 650 mg PO Q4H PRN PRN Reason: Temp > 100.4 Al Hydroxide/Mg Hydroxide (Milk Of Erica Kohli) 30 ml PO HS PRN PRN Reason: If no BM in 3 days Apixaban (Eliquis) 5 mg PO BID [facility] Last Admin: 09/27/18 09:26 Dose: Not Given Aspirin (Ecotrin) 81 mg PO DAILY [facility] Last Admin: 09/27/18 09:25 Dose: 81 mg Bisacodyl (Dulcolax Supp) 10 mg RECTAL DAILY PRN PRN Reason: Constipation Cetirizine HCl (Zyrtec) 10 mg PO DAILY [facility] Last Admin: 09/27/18 09:25 Dose: 10 mg Lactobacillus Acidophilus (Lactinex) 1 tab PO DAILY [facility] Last Admin: 09/27/18 09:24 Dose: 1 tab Lisinopril (Prinivil) 10 mg PO DAILY [facility] Last Admin: 09/27/18 09:25 Dose: 10 mg Metoprolol Tartrate (Lopressor) 25 mg PO BID [facility] Last Admin: 09/27/18 09:24 Dose: 25 mg Multivitamins/Minerals (Theragran-M) 1 tab PO DAILY [facility] Last Admin: 09/27/18 09:25 Dose: 1 tab Ondansetron HCl (Zofran Inj) 4 mg IV.PUSH Q6H PRN PRN Reason: NAUSEA OR VOMITING Pantoprazole Sodium (Protonix) 20 mg PO DAILY [facility] Last Admin: 09/27/18 09:25 Dose: 20 mg Sodium Chloride (Ns Flush) 2 ml IV.FLUSH PRN PRN PRN Reason: FLUSH AFTER USING IV ACCESS Sodium Chloride (Ns Flush) 2 ml IV.FLUSH BID [facility] Last Admin: 09/27/18 09:25 Dose: 2 ml Sodium Chloride (Ns Flush) 2 ml IV.FLUSH PRN PRN PRN Reason: FLUSH AFTER USING IV ACCESS Ursodiol (Actigall) 300 mg PO DAILY [facility] Last Admin: 09/27/18 09:25 Dose: 300 mg <Lorraine Beal - Last Filed: 09/27/18 10:47> Active Medications: Active Medications Acetaminophen (Tylenol) 650 mg PO Q4H PRN PRN Reason: Temp > 100.4 Al Hydroxide/Mg Hydroxide (Milk Of Magnmónica Liq) 30 ml PO HS PRN PRN Reason: If no BM in 3 days Apixaban (Eliquis) 5 mg PO BID [facility] Last Admin: 09/27/18 09:26 Dose: Not Given Aspirin (Ecotrin) 81 mg PO DAILY [facility] Last Admin: 09/27/18 09:25 Dose: 81 mg Bisacodyl (Dulcolax Supp) 10 mg RECTAL DAILY PRN PRN Reason: Constipation Cetirizine HCl (Zyrtec) 10 mg PO DAILY [facility] Last Admin: 09/27/18 09:25 Dose: 10 mg Lactobacillus Acidophilus (Lactinex) 1 tab PO DAILY [facility] Last Admin: 09/27/18 09:24 Dose: 1 tab Lisinopril (Prinivil) 10 mg PO DAILY [facility] Last Admin: 09/27/18 09:25 Dose: 10 mg Metoprolol Tartrate (Lopressor) 25 mg PO BID [facility] Last Admin: 09/27/18 09:24 Dose: 25 mg Multivitamins/Minerals (Theragran-M) 1 tab PO DAILY [facility] Last Admin: 09/27/18 09:25 Dose: 1 tab Ondansetron HCl (Zofran Inj) 4 mg IV.PUSH Q6H PRN PRN Reason: NAUSEA OR VOMITING Pantoprazole Sodium (Protonix) 20 mg PO DAILY [facility] Last Admin: 09/27/18 09:25 Dose: 20 mg Sodium Chloride (Ns Flush) 2 ml IV.FLUSH PRN PRN PRN Reason: FLUSH AFTER USING IV ACCESS Sodium Chloride (Ns Flush) 2 ml IV.FLUSH BID [facility] Last Admin: 09/27/18 09:25 Dose: 2 ml Sodium Chloride (Ns Flush) 2 ml IV.FLUSH PRN PRN PRN Reason: FLUSH AFTER USING IV ACCESS Ursodiol (Actigall) 300 mg PO DAILY [facility] Last Admin: 09/27/18 09:25 Dose: 300 mg <Scarlett Parada A - Last Filed: 09/27/18 12:36> Allergies Allergy/AdvReac Type Severity Reaction Status Date / Time Sulfa (Sulfonamide Allergy Rash Verified 09/26/18 14:19 Antibiotics) Home Medications Medication Instructions Recorded Confirmed Type Lactobacillus acidoph-pectin 1 tab PO DAILY 09/26/18 09/26/18 History alendronate [Fosamax] 70 mg PO QWEEK 09/26/18 09/26/18 History apixaban [Eliquis] 5 mg PO BID 09/26/18 09/26/18 History aspirin 81 mg PO DAILY 09/26/18 09/26/18 History bisacodyl [Dulcolax (bisacodyl)] 10 mg IN DAILY PRN 09/26/18 09/26/18 History cetirizine [Zyrtec] 10 mg PO DAILY 09/26/18 09/26/18 History lisinopril 10 mg PO DAILY 09/26/18 09/26/18 History magnesium citrate [Citroma] 296 ml PO QAM PRN 09/26/18 09/26/18 History magnesium hydroxide [Milk of 30 ml PO HS PRN 09/26/18 09/26/18 History Magnesia] metoprolol tartrate 25 mg PO BID 09/26/18 09/26/18 History multivitamin with minerals 1 tab PO DAILY 09/26/18 09/26/18 History omeprazole 20 mg PO DAILY 09/26/18 09/26/18 History polyethylene glycol 3350 [GlycoLax] 17 gm PO DAILY 09/26/18 09/26/18 History sodium phosphates [Enema 118 ml IN DAILY 09/26/18 09/26/18 History Disposable] ursodiol 300 mg PO DAILY 09/26/18 09/26/18 History Exam Vital signs: Vital Signs 09/26/18 14:19 09/26/18 14:35 09/26/18 14:46 Temperature 97.8 F Pulse Rate 59 L 60 Respiratory Rate 17 Blood Pressure 133/64 Pulse Oximetry 100 99 09/26/18 17:09 09/26/18 19:41 09/26/18 20:46 Temperature 97.3 F L Pulse Rate 60 60 60 Respiratory Rate 16 17 17 Blood Pressure 153/66 H 148/69 H 167/72 H Pulse Oximetry 99 97 96 09/27/18 00:00 09/27/18 04:33 09/27/18 08:00 Temperature 98.5 F 98.4 F 97.7 F Pulse Rate 60 60 60 Respiratory Rate 16 16 16 Blood Pressure 160/72 H 148/71 H 155/72 H Pulse Oximetry 94 L 96 95 Intake & Output 09/26/18 09/27/18 09/27/18 18:59 06:59 18:59 Intake Total 550 / 550 Balance 550 / 550 Weight 70.307 kg 70 kg Intake: IV 550 / 550 Zosyn 3.375 GM Premix 3.375 gm 50 / 50 In 50 ml @ 100 mls/hr IV.SIG ONCE ONE Rx#:[id number] NS Inj 500 ML @ Wide Open IV. 500 / 500 SIG BOLUS ONE Rx#:[id number] Other: # Voids 4 Date of Last Bowel Movement 09/27/18 # Bowel Movements 1 Weight On Admission 70.307 kg - Constitutional no acute distress - Routine HEENT Exam Head: Present: normocephalic - Routine Neck Exam Present: supple - Routine Respiratory Exam Present: CTA bilaterally. Absent: accessory muscle use - Routine Cardiovascular Exam Present: RRR, S1, S2 Comments: Pacemaker left upper chest - Routine Abdominal Exam Present: soft, normoactive bowel sounds. Absent: tenderness, distended, firm - Routine Extremities Exam Absent: edema - Routine Skin Exam Present: dry, warm - Routine Neurological Exam Present: alert, oriented X3 <Beal,Lorraine - Last Filed: 09/27/18 10:47> Vital signs: Vital Signs 09/26/18 14:19 09/26/18 14:35 09/26/18 14:46 Temperature 97.8 F Pulse Rate 59 L 60 Respiratory Rate 17 Blood Pressure 133/64 Pulse Oximetry 100 99 09/26/18 17:09 09/26/18 19:41 09/26/18 20:46 Temperature 97.3 F L Pulse Rate 60 60 60 Respiratory Rate 16 17 17 Blood Pressure 153/66 H 148/69 H 167/72 H Pulse Oximetry 99 97 96 09/27/18 00:00 09/27/18 04:33 09/27/18 08:00 Temperature 98.5 F 98.4 F 97.7 F Pulse Rate 60 60 60 Respiratory Rate 16 16 16 Blood Pressure 160/72 H 148/71 H 155/72 H Pulse Oximetry 94 L 96 95 Intake & Output 09/26/18 09/27/18 09/27/18 18:59 06:59 18:59 Intake Total 550 / 550 Balance 550 / 550 Weight 70.307 kg 70 kg Intake: IV 550 / 550 Zosyn 3.375 GM Premix 3.375 gm 50 / 50 In 50 ml @ 100 mls/hr IV.SIG ONCE ONE Rx#:[id number] NS Inj 500 ML @ Wide Open IV. 500 / 500 SIG BOLUS ONE Rx#:[id number] Other: # Voids 4 Date of Last Bowel Movement 09/27/18 # Bowel Movements 1 Weight On Admission 70.307 kg <Scarlett Parada - Last Filed: 09/27/18 12:36> Results - Labs CBC & Chem 7: 09/26/18 14:55 09/26/18 14:55 Labs: Laboratory Results - last 24 hr 09/26/18 09/26/18 09/26/18 14:55 14:55 14:55 WBC 7.4 RBC 3.30 L Hgb 10.4 L Hct 30.6 L MCV 92.7 MCH 31.6 MCHC 34.0 RDW 14.6 Plt Count 195 MPV 8.0 Neut % (Auto) 73.6 H Lymph % (Auto) 17.2 Wallace % (Auto) 8.3 H Eos % (Auto) 0.4 Baso % (Auto) 0.5 Neut # (Auto) 5.5 Lymph # (Auto) 1.3 Wallace # (Auto) 0.6 Eos # (Auto) 0.0 Baso # (Auto) 0.0 WBC Differential . Differential Comment Auto diff final PT 11.8 H INR 1.2 APTT 29.6 Sodium 137 Potassium 4.2 Chloride 106 Carbon Dioxide 25.6 Anion Gap 5 BUN 19 H Creatinine 1.15 H Estimated GFR 45 L Random Glucose 115 H Calcium 8.4 L Magnesium 2.0 Total Bilirubin 1.1 H AST 159 H ALT 179 H Alkaline Phosphatase 528 H Total Creatine Kinase 33 Troponin I 0.05 Total Protein 6.6 Albumin 2.5 L Lipase 84 Urine Color Urine Clarity Urine pH Ur Specific [place] Urine Protein Urine Glucose (UA) Urine Ketones Urine Occult Blood Urine Nitrate Urine Bilirubin Urine Urobilinogen Ur Leukocyte Esterase Urine RBC Urine WBC Urine Mucus Micro UA Comment Ur Microscopic Review Urine Culture Comments 09/26/18 17:34 WBC RBC Hgb Hct MCV MCH MCHC RDW Plt Count MPV Neut % (Auto) Lymph % (Auto) Wallace % (Auto) Eos % (Auto) Baso % (Auto) Neut # (Auto) Lymph # (Auto) Wallace # (Auto) Eos # (Auto) Baso # (Auto) WBC Differential Differential Comment PT INR APTT Sodium Potassium Chloride Carbon Dioxide Anion Gap BUN Creatinine Estimated GFR Random Glucose Calcium Magnesium Total Bilirubin AST ALT Alkaline Phosphatase Total Creatine Kinase Troponin I Total Protein Albumin Lipase Urine Color Yellow Urine Clarity Clear Urine pH 5.0 Ur Specific [place] 1.016 Urine Protein Negative Urine Glucose (UA) Negative Urine Ketones Negative Urine Occult Blood Negative Urine Nitrate Negative Urine Bilirubin Negative Urine Urobilinogen 0.2 Ur Leukocyte Esterase Negative Urine RBC 2 Urine WBC Less than 1 Urine Mucus Few H Micro UA Comment Cath-culture not ind Ur Microscopic Review Not Reportable Urine Culture Comments Cath-cult not ind - Imaging Impressions Abdomen/Pelvis CT 09/26/18 14:46 CONCLUSION: 1. Round hyperdensity in the expected region of the distal common bile duct measuring 16 mm consistent with probable choledocholithiasis. ERCP would be helpful for further evaluation and possible treatment of this finding if clinically indicated. 2. Dilatation and pneumobilia involving the central intrahepatic and extrahepatic dilatation is seen. 3. Multiple calcified nonobstructing left renal calculi. 4. Bilateral renal cysts. 5. Small umbilical hernia. 6. Uncomplicated colonic diverticulosis. 7. Degenerative changes and scoliosis of the thoracolumbar spine are noted. 8. Grade I anterolisthesis of L5 in relation to S1. 9. Degenerative changes involving the hips are noted bilaterally. 10. Coronary artery calcifications. 11. Chronic interstitial changes involving the visualized lung bases. Chest X-Ray 09/26/18 14:46 CONCLUSION: 1. No acute cardiopulmonary disease. 2. Left-sided pacemaker. Gallbladder Ultrasound 09/26/18 15:39 CONCLUSION: 1. The common bile duct is dilated to 14 mm, though the distal common bile duct cannot be visualized due to shadowing from bowel gas. Recommend consideration for ERCP given the suspicion for choledocholithiasis based on CT. 2. Cholecystectomy. 3. Right upper pole renal cyst. <Lorraine Beal - Last Filed: 09/27/18 10:47> - Labs CBC & Chem 7: 09/26/18 14:55 09/26/18 14:55 Labs: Laboratory Results - last 24 hr 09/26/18 09/26/18 09/26/18 14:55 14:55 14:55 WBC 7.4 RBC 3.30 L Hgb 10.4 L Hct 30.6 L MCV 92.7 MCH 31.6 MCHC 34.0 RDW 14.6 Plt Count 195 MPV 8.0 Neut % (Auto) 73.6 H Lymph % (Auto) 17.2 Wallace % (Auto) 8.3 H Eos % (Auto) 0.4 Baso % (Auto) 0.5 Neut # (Auto) 5.5 Lymph # (Auto) 1.3 Wallace # (Auto) 0.6 Eos # (Auto) 0.0 Baso # (Auto) 0.0 WBC Differential . Differential Comment Auto diff final PT 11.8 H INR 1.2 APTT 29.6 Sodium 137 Potassium 4.2 Chloride 106 Carbon Dioxide 25.6 Anion Gap 5 BUN 19 H Creatinine 1.15 H Estimated GFR 45 L Random Glucose 115 H Calcium 8.4 L Magnesium 2.0 Total Bilirubin 1.1 H AST 159 H ALT 179 H Alkaline Phosphatase 528 H Total Creatine Kinase 33 Troponin I 0.05 Total Protein 6.6 Albumin 2.5 L Lipase 84 Urine Color Urine Clarity Urine pH Ur Specific [place] Urine Protein Urine Glucose (UA) Urine Ketones Urine Occult Blood Urine Nitrate Urine Bilirubin Urine Urobilinogen Ur Leukocyte Esterase Urine RBC Urine WBC Urine Mucus Micro UA Comment Ur Microscopic Review Urine Culture Comments 09/26/18 17:34 WBC RBC Hgb Hct MCV MCH MCHC RDW Plt Count MPV Neut % (Auto) Lymph % (Auto) Wallace % (Auto) Eos % (Auto) Baso % (Auto) Neut # (Auto) Lymph # (Auto) Wallace # (Auto) Eos # (Auto) Baso # (Auto) WBC Differential Differential Comment PT INR APTT Sodium Potassium Chloride Carbon Dioxide Anion Gap BUN Creatinine Estimated GFR Random Glucose Calcium Magnesium Total Bilirubin AST ALT Alkaline Phosphatase Total Creatine Kinase Troponin I Total Protein Albumin Lipase Urine Color Yellow Urine Clarity Clear Urine pH 5.0 Ur Specific [place] 1.016 Urine Protein Negative Urine Glucose (UA) Negative Urine Ketones Negative Urine Occult Blood Negative Urine Nitrate Negative Urine Bilirubin Negative Urine Urobilinogen 0.2 Ur Leukocyte Esterase Negative Urine RBC 2 Urine WBC Less than 1 Urine Mucus Few H Micro UA Comment Cath-culture not ind Ur Microscopic Review Not Reportable Urine Culture Comments Cath-cult not ind - Imaging Impressions Abdomen/Pelvis CT 09/26/18 14:46 CONCLUSION: 1. Round hyperdensity in the expected region of the distal common bile duct measuring 16 mm consistent with probable choledocholithiasis. ERCP would be helpful for further evaluation and possible treatment of this finding if clinically indicated. 2. Dilatation and pneumobilia involving the central intrahepatic and extrahepatic dilatation is seen. 3. Multiple calcified nonobstructing left renal calculi. 4. Bilateral renal cysts. 5. Small umbilical hernia. 6. Uncomplicated colonic diverticulosis. 7. Degenerative changes and scoliosis of the thoracolumbar spine are noted. 8. Grade I anterolisthesis of L5 in relation to S1. 9. Degenerative changes involving the hips are noted bilaterally. 10. Coronary artery calcifications. 11. Chronic interstitial changes involving the visualized lung bases. Chest X-Ray 09/26/18 14:46 CONCLUSION: 1. No acute cardiopulmonary disease. 2. Left-sided pacemaker. Gallbladder Ultrasound 09/26/18 15:39 CONCLUSION: 1. The common bile duct is dilated to 14 mm, though the distal common bile duct cannot be visualized due to shadowing from bowel gas. Recommend consideration for ERCP given the suspicion for choledocholithiasis based on CT. 2. Cholecystectomy. 3. Right upper pole renal cyst. <Scarlett Parada - Last Filed: 09/27/18 12:36> Assessment and Plan (1) Choledocholithiasis Status: Acute Code(s): K80.50 - Calculus of bile duct without cholangitis or cholecystitis without obstruction - Plan Patient is a pleasant 88-year-old female with past medical history significant for GERD, heart failure, hypertension, aortic valve stenosis, osteoporosis, pacemaker, atrial fibrillation and rheumatoid arthritis. Surgical history significant for aortic valve replacement, partial hysterectomy, bladder repair, cholecystectomy, pacemaker insertion and multiple ERCPs(on Ursodiol daily). Patient presented to [facility] emergency room from her custodial facility with report of intermittent abdominal pain with chills and generalized weakness. Patient states that she has been having what she describes to be a dull aching intermittent right upper quadrant abdominal pain since March 2018. Patient endorsed accompanying weakness with nausea. Presently she denies abdominal pain or nausea. Patient states last EGD done in May 2019 out of state in [place] with unremarkable findings. Last colonoscopy per patient was done in 2014 where she underwent perforated bowel with surgical repair. CT scan on arrival showed common bile duct dilatation to 16 mm. Of note, patient endorses that she currently takes Eliquis, last dose 06/2019 8 AM. Our service has been consulted to evaluate patient for ERCP due to choledocholithiasis. Choledocholithiasis Patient endorses right upper quadrant pain intermittently since March 2018. Reports multiple ERCPs in the past, Ursodiol daily. 09/26/2018 CT abdomen and pelvis: Round hyperdensity in the expected region of the distal common bile duct measuring 16 mm consistent with probable choledocholithiasis. ERCP would be helpful for further evaluation and possible treatment of this finding if clinically indicated. Dilatation and pneumobilia involving the central intrahepatic and extrahepatic dilatation is seen. Multiple calcified nonobstructing left renal calculi. Bilateral renal cysts. Small umbilical hernia. Uncomplicated colonic diverticulosis. -WBC 7.4 hemoglobin 10.4 hematocrit 30.6 INR 1.2 -Total bilirubin 1.1 AST 159 ALT 179 alk phos 528 lipase 84 Plan -Clear liquid diet -Obtain consent for ERCP- plan for Sunday as pt has had Eliquis -Will need to hold Eliquis -Monitor labs -Analgesics and antiemetics as per attending -Supportive care -Further recommendations to follow based on patient status and clinical findings This patient has been seen by myself and Dr. Parada and this note is written on his behalf - Attending Attestation Dr. Parada <Lorraine Beal - Last Filed: 09/27/18 10:47> (1) Choledocholithiasis Status: Acute Code(s): K80.50 - Calculus of bile duct without cholangitis or cholecystitis without obstruction - Attending Attestation As above, On Eliquis, will hold for few days unless evidence of cholangitis. Follow LFT's and if dropping to check MRCP. Will follow up with you. Thank you for the consult. <Scarlett Parada - Last Filed: 09/27/18 12:36>
--- NOTE | 2018-09-27 11:30 | MB ---
cc: Prasanth Duval MD DATE: 09/26/2018 REASON FOR CONSULTATION: Choledocholithiasis, abdominal pain. AMUSEMENT MACHINE MECHANIC: Luis Fernando Galdamez DO. HISTORY OF PRESENT ILLNESS: The patient is an 88-year-old female with multiple medical issues who presented from [facility] for evaluation of weakness and generalized abdominal pain. The patient was noted to complain of mild stomachache which started 24 hours ago. The pain was 3/10, currently a 4/10, worse with movement, better when lying still. Pain was somewhat intermittent. The patient noted the pain started yesterday and she had some weakness and some chills yesterday as well. She denied any significant fever. She came to the emergency department for further evaluation including CT scan with concern for choledocholithiasis. Laboratory findings with a bilirubin of 1.1 and elevated AST and ALT. The patient has had a history of cholecystectomy and has further history of choledocholithiasis, in total x3, status post ERCP with stone removal. She said this has been going on for several years. She had a cholecystectomy approximately 10 years ago. Her last ERCP was a couple years ago. She has done relatively well up until this point. She was noted to have multiple medical issues with a recent hospitalization in [place], [place] with a pacemaker placement. She further has atrial fibrillation and a cardiac valve and is on blood thinner. PAST MEDICAL HISTORY: Reflux, CHF, hypertension, aortic stenosis, osteoporosis, atrial fibrillation, rheumatoid arthritis. PAST SURGICAL HISTORY: Diagnostic laparoscopy for colon perforation, pacemaker placement, ERCP, multiple, endoscopy, colonoscopy. MEDICATIONS: See EMR, Eliquis. SOCIAL HISTORY: Denies smoking, ETOH, or IVDA. ALLERGIES: SULFA. FAMILY HISTORY: Denies diabetes or hypertension. REVIEW OF SYSTEMS: GENERAL: Complains of chills. Denies fevers. HEENT: Denies eye pain, ear pain. NECK: Denies swelling or pain. LUNGS: Denies cough or wheeze. HEART: Denies palpitations or chest pain, atrial fibrillation. ABDOMEN: Complains of mild abdominal pain. Denies nausea or vomiting. GENITOURINARY: Denies dysuria or hematuria. Denies polyuria or polydipsia. INTEGUMENT: Denies any mass or lesions. NEUROLOGIC: Denies numbness, tingling. PHYSICAL EXAMINATION: GENERAL: The patient is in no acute distress. VITAL SIGNS: Temperature 97.8, pulse 60, respirations 17, blood pressure 133/64, saturation 100%. HEENT: Pupils equal, round, reactive. No scleral icterus. NECK: Supple, trachea midline. LUNGS: Clear to auscultation, bilateral expansion. HEART: Irregularly irregular. ABDOMEN: Soft. Mild tenderness to palpation. No rebound, no guarding. EXTREMITIES: Warm and well perfused. NEUROLOGIC: GCS of 15, 5/5 motor in all extremities. PSYCHIATRIC: Appropriate mood, appropriate insight. BACK: Normal curvature. LABORATORY AND DIAGNOSTIC DATA: WBC 7.4, hemoglobin 10.4, hematocrit 30.6, platelets 195. Sodium 137, potassium 4.2, chloride 106, BUN is 19, creatinine 1.1, AST 159, ALT 179, total bilirubin 1.1. Alkaline phosphatase was 582, bilirubin 2.5. CT reviewed by myself showing dilated common bile duct with a density of 1.6 mm, concern for choledocholithiasis, pneumobilia, intrahepatic or extrahepatic ducts, bilateral renal cysts, small umbilical hernia, colon diverticulosis, degenerative spine changes. Gallbladder ultrasound reviewed by myself. Difficulty viewing distal common duct. Common bile duct 1.4 mm. History of cholecystectomy. ASSESSMENT: The patient is an 88-year-old female with multiple medical issues, congestive heart failure, atrial fibrillation, coronary artery disease, recent pacemaker, on Eliquis, who presents with choledocholithiasis. PLAN: After further workup of the patient with the above-named issues, at this point, I recommend MRCP for further delineation and evaluation of biliary tree. Further recommend gastroenterology consultation for possible repeat ERCP and stone removal. The patient did have chills, but lab work does not indicate for cholangitis at this time, I would prophylactically treat with antibiotic to cover this, however. We will continue to follow closely. If ERCP is unsuccessful, then we will consider surgical intervention versus possible PTC tube. We will continue to follow. Thank you for the consultation. MD LILLY Dougherty/tiana/mariangel , 10:19 AM , 10:32 AM
--- NOTE | 2018-09-27 21:18 | P.PNGS ---
Subjective Patient reports: no new complaints, feels better Physical Exam Vital signs: Vital Signs 09/27/18 00:00 09/27/18 04:33 09/27/18 08:00 Temperature 98.5 F 98.4 F 97.7 F Pulse Rate 60 60 60 Respiratory Rate 16 16 16 Blood Pressure 160/72 H 148/71 H 155/72 H Pulse Oximetry 94 L 96 95 09/27/18 12:00 09/27/18 16:00 09/27/18 20:00 Temperature 97.4 F L 97.2 F L 97.0 F L Pulse Rate 60 60 Respiratory Rate 16 16 16 Blood Pressure 148/66 H 135/65 135/63 Pulse Oximetry 97 98 96 Intake & Output 09/27/18 09/27/18 09/28/18 06:59 18:59 06:59 Intake Total 550 / 550 700 / 700 Balance 550 / 550 700 / 700 Weight 70 kg Intake: IV 550 / 550 Zosyn 3.375 GM Premix 3.375 gm 50 / 50 In 50 ml @ 100 mls/hr IV.SIG ONCE ONE Rx#:[id number] NS Inj 500 ML @ Wide Open IV. 500 / 500 SIG BOLUS ONE Rx#:[id number] Oral 700 / 700 Other: # Voids 4 Date of Last Bowel Movement 09/27/18 # Bowel Movements 1 2 Weight On Admission 70.307 kg - Routine Abdominal Exam Present: soft (mild ruq ttp) Results - Labs 09/26/18 14:55 09/26/18 14:55 - Imaging Imaging: ITS Impressions Abdomen/Pelvis CT 09/26/18 14:46 CONCLUSION: 1. Round hyperdensity in the expected region of the distal common bile duct measuring 16 mm consistent with probable choledocholithiasis. ERCP would be helpful for further evaluation and possible treatment of this finding if clinically indicated. 2. Dilatation and pneumobilia involving the central intrahepatic and extrahepatic dilatation is seen. 3. Multiple calcified nonobstructing left renal calculi. 4. Bilateral renal cysts. 5. Small umbilical hernia. 6. Uncomplicated colonic diverticulosis. 7. Degenerative changes and scoliosis of the thoracolumbar spine are noted. 8. Grade I anterolisthesis of L5 in relation to S1. 9. Degenerative changes involving the hips are noted bilaterally. 10. Coronary artery calcifications. 11. Chronic interstitial changes involving the visualized lung bases. Chest X-Ray 09/26/18 14:46 CONCLUSION: 1. No acute cardiopulmonary disease. 2. Left-sided pacemaker. Gallbladder Ultrasound 09/26/18 15:39 CONCLUSION: 1. The common bile duct is dilated to 14 mm, though the distal common bile duct cannot be visualized due to shadowing from bowel gas. Recommend consideration for ERCP given the suspicion for choledocholithiasis based on CT. 2. Cholecystectomy. 3. Right upper pole renal cyst. Assessment and Plan - Plan choledocholithiasis PLAN Await labs await gi recs pt on eliquis hold for now mrcp pending, f/u results abx pain control
[2018-09-28 08:52] LABS: Baso % (Auto) 0.8 % (0.0-2.0); Eos % (Auto) 0.9 % (0.0-4.0); Hematocrit 32.9 % (35.0-46.0); Hemoglobin 10.9 gm/dL (11.6-15.3); Lymph # (Auto) 1.1 th/mm3 (1.0-4.8); Lymph % (Auto) 21.7 % (9.0-44.0); Mean Corpuscular HGB Conc 32.9 % (32.0-36.0); Mean Corpuscular Hemoglobin 31.4 pg (27.0-34.0); Mean Corpuscular Volume 95.2 fL (80.0-100.0); Mono # (Auto) 0.5 th/mm3 (0.0-0.9); Mono % (Auto) 9.5 % (0.0-8.0); Neut # (Auto) 3.4 th/mm3 (1.8-7.7); Neut % (Auto) 67.1 % (16.0-70.0); Platelet Count 207 th/mm3 (150-450); Red Blood Count 3.46 mil/mm3 (4.00-5.30); Red Cell Distribution Width 14.9 % (11.6-17.2); White Blood Count 5.1 th/mm3 (4.0-11.0)
[2018-09-28] MEDS: Lactobacillus Acidophilus/L. Spores Tablet PO SCH (09:05)
[2018-09-28] MEDS: Multivitamin/Minerals Therapeutic Tablet PO SCH (09:06)
[2018-09-28] MEDS: Metoprolol Tartrate 25 MG Tablet PO SCH ×2 (09:06→21:22)
[2018-09-28] MEDS: Lisinopril 10 MG Tablet PO SCH (09:06)
[2018-09-28] MEDS: Pantoprazole Sodium 20 MG DR Tablet PO SCH (09:06)
[2018-09-28 09:13] LABS: Albumin 2.8 g/dL (3.4-5.0); Anion Gap 8 meq/L (5-15); Aspartate Aminotransferase 126 U/L (15-37); Blood Urea Nitrogen 10 mg/dL (7-18); Calcium 8.9 mg/dL (8.5-10.1); Chloride 105 meq/L (98-107); Glomerular Filtration Rate 56 mL/min (>89); Glucose,Random 120 mg/dL (74-106); Lipase 72 U/L (73-393); Potassium 3.9 meq/L (3.5-5.1); Sodium 140 meq/L (136-145)
[2018-09-28 09:14] LABS: Alanine Aminotransferase 166 U/L (10-53)
[2018-09-28 09:16] LABS: Alkaline Phosphatase 525 U/L (45-117); Total Protein 6.8 g/dL (6.4-8.2)
--- NOTE | 2018-09-28 11:41 | P.PNFP ---
Subjective Interval history: She tells me abd pain is stable and is hoping ERCP will alleviate the discomfort. Results - Labs Result diagrams: 09/28/18 08:18 09/28/18 08:18 Abnormal lab results 09/28/18 09/28/18 Range/Units 08:18 08:18 RBC 3.46 L (4.00-5.30) mil/mm3 Hgb 10.9 L (11.6-15.3) gm/dL Hct 32.9 L (35.0-46.0) % [place] % (Auto) 9.5 H (0.0-8.0) % Estimated GFR 56 L (>89) mL/min Random Glucose 120 H (74-106) mg/dL AST 126 H (15-37) U/L ALT 166 H (10-53) U/L Alkaline Phosphatase 525 H (45-117) U/L Albumin 2.8 L (3.4-5.0) g/dL Lipase 72 L (73-393) U/L Short CBC 09/28/18 Range/Units 08:18 WBC 5.1 (4.0-11.0) th/mm3 Hgb 10.9 L (11.6-15.3) gm/dL Hct 32.9 L (35.0-46.0) % Plt Count 207 (150-450) th/mm3 BMP 09/28/18 08:18 Sodium 140 Potassium 3.9 Chloride 105 Carbon Dioxide 27.0 BUN 10 Creatinine 0.95 Calcium 8.9 Liver Function 09/28/18 Range/Units 08:18 Total Bilirubin 0.9 (0.2-1.0) mg/dL AST 126 H (15-37) U/L ALT 166 H (10-53) U/L Alkaline Phosphatase 525 H (45-117) U/L Albumin 2.8 L (3.4-5.0) g/dL Physical Exam Vital signs: Vital Signs 09/27/18 12:00 09/27/18 16:00 09/27/18 20:00 Temperature 97.4 F L 97.2 F L 97.0 F L Pulse Rate 60 60 Respiratory Rate 16 16 16 Blood Pressure 148/66 H 135/65 135/63 Pulse Oximetry 97 98 96 09/28/18 00:00 09/28/18 08:00 Temperature 97.5 F L 97.7 F Pulse Rate 60 60 Respiratory Rate 16 17 Blood Pressure 144/65 H 172/79 H Pulse Oximetry 96 96 Intake & Output 09/27/18 09/28/18 09/28/18 18:59 06:59 18:59 Intake Total 700 / 700 480 / 480 480 / 480 Balance 700 / 700 480 / 480 480 / 480 Weight 70 kg Intake: Oral 700 / 700 480 / 480 480 / 480 Other: # Voids 3 Date of Last Bowel Movement 09/27/18 # Bowel Movements 2 - Constitutional no acute distress - Routine HEENT Exam Head: Present: normocephalic, atraumatic ENT: Present: mucous membranes moist - Routine Neck Exam Present: supple, full ROM - Routine Respiratory Exam Present: decreased breath sounds - Routine Cardiovascular Exam Present: RRR - Routine Abdominal Exam Present: soft, normoactive bowel sounds - Routine Exam Perineum Description: Intact - Routine Extremities Exam Present: full ROM - Routine Skin Exam Present: intact - Routine Neurological Exam Present: alert, oriented X3 - Detailed Neurological Exam: Coma Scale Eye Opening: Spontaneous Verbal Response: Oriented Motor Response: Obey commands Jeremías Coma Scale Total: 15 - Routine Psychiatric Exam Present: normal affect Assessment and Plan - Assessment (1) Choledocholithiasis Code(s): K80.50 - Calculus of bile duct without cholangitis or cholecystitis without obstruction Status: Acute Plan: ERCP Sunday. (2) Hypertension Code(s): I10 - Essential (primary) hypertension Status: Acute Plan: Will add amlodipine 5 mg to her regimen due to poorly controlled HTN on lisinopril alone. Will monitor and titrate dose as needed. - Assessment and Plan 09/27/18 - She is for ERCP today per GI/Surgery for choledochocholelithiasis 09/28/18 - ERCP postponed until Sunday. HTN not well controlled on low dose ACEI so I have added amlodipine 5 mg a day and will follow and titrate as needed. She is afebrile and in NAD at this time. (2) Hypertension Qualifiers: Hypertension type: essential hypertension Qualified Code(s): I10 - Essential (primary) hypertension
[2018-09-28] MEDS: amLODIPine 5 MG Tablet PO SCH (13:04)
--- NOTE | 2018-09-28 14:53 | P.PNGI ---
Subjective Interval history: Patient is awake alert sitting up in chair denies any current abdominal pain nausea or vomiting <KeithSarah - Last Filed: 09/28/18 14:49> Physical Exam Vital signs: Vital Signs 09/27/18 16:00 09/27/18 20:00 09/28/18 00:00 Temperature 97.2 F L 97.0 F L 97.5 F L Pulse Rate 60 60 Respiratory Rate 16 16 16 Blood Pressure 135/65 135/63 144/65 H Pulse Oximetry 98 96 96 09/28/18 08:00 09/28/18 12:00 Temperature 97.7 F 97 F L Pulse Rate 60 60 Respiratory Rate 17 17 Blood Pressure 172/79 H 147/71 H Pulse Oximetry 96 98 Intake & Output 09/27/18 09/28/18 09/28/18 18:59 06:59 18:59 Intake Total 700 / 700 480 / 480 720 / 720 Balance 700 / 700 480 / 480 720 / 720 Weight 70 kg Intake: Oral 700 / 700 480 / 480 720 / 720 Other: # Voids 3 # Urine Diapers 3 Date of Last Bowel Movement 09/27/18 09/28/18 # Bowel Movements 2 - Constitutional no acute distress, obese, cooperative - Routine HEENT Exam Head: Present: normocephalic (Pale) ENT: Present: mucous membranes moist - Routine Neck Exam Present: supple - Routine Respiratory Exam Present: CTA bilaterally (No obvious shortness of breath) - Routine Cardiovascular Exam Present: S1, S2 - Routine Abdominal Exam Present: soft, normoactive bowel sounds (Round, no obvious abdominal discomfort to light palpation) - Routine Skin Exam Present: intact - Routine Neurological Exam Present: alert <Sarah Parker - Last Filed: 09/28/18 14:49> Vital signs: Vital Signs 09/28/18 12:00 09/28/18 16:00 09/28/18 20:00 Temperature 97 F L 97.6 F 97.2 F L Pulse Rate 60 60 60 Respiratory Rate 17 17 20 Blood Pressure 147/71 H 147/71 H 145/70 H Pulse Oximetry 98 97 98 09/29/18 00:00 09/29/18 08:00 Temperature 97.8 F 97.5 F L Pulse Rate 63 60 Respiratory Rate 17 16 Blood Pressure 135/62 141/66 H Pulse Oximetry 95 95 Intake & Output 09/28/18 09/29/18 09/29/18 18:59 06:59 18:59 Intake Total 720 / 720 100 / 100 Balance 720 / 720 100 / 100 Weight 71.2 kg Intake: Oral 720 / 720 100 / 100 Other: # Voids 5 # Urine Diapers 3 Date of Last Bowel Movement 09/28/18 <Scarlett Parada - Last Filed: 09/29/18 11:20> Results - Labs CBC & Chem 7: 09/28/18 08:18 09/28/18 08:18 Laboratory Results - last 24 hr 09/28/18 09/28/18 08:18 08:18 WBC 5.1 RBC 3.46 L Hgb 10.9 L Hct 32.9 L MCV 95.2 MCH 31.4 MCHC 32.9 RDW 14.9 Plt Count 207 MPV 8.0 Neut % (Auto) 67.1 Lymph % (Auto) 21.7 [place] % (Auto) 9.5 H Eos % (Auto) 0.9 Baso % (Auto) 0.8 Neut # (Auto) 3.4 Lymph # (Auto) 1.1 [place] # (Auto) 0.5 Eos # (Auto) 0.0 Baso # (Auto) 0.0 WBC Differential . Differential Comment Auto diff final Sodium 140 Potassium 3.9 Chloride 105 Carbon Dioxide 27.0 Anion Gap 8 BUN 10 Creatinine 0.95 Estimated GFR 56 L Random Glucose 120 H Calcium 8.9 Total Bilirubin 0.9 AST 126 H ALT 166 H Alkaline Phosphatase 525 H Total Protein 6.8 Albumin 2.8 L Lipase 72 L <Sarah Parker - Last Filed: 09/28/18 14:49> - Labs CBC & Chem 7: 09/28/18 08:18 09/28/18 08:18 <Scarlett Parada - Last Filed: 09/29/18 11:20> Assessment and Plan (1) Choledocholithiasis Status: Acute Code(s): K80.50 - Calculus of bile duct without cholangitis or cholecystitis without obstruction - Plan Patient is a pleasant 88-year-old female with past medical history significant for GERD, heart failure, hypertension, aortic valve stenosis, osteoporosis, pacemaker, atrial fibrillation and rheumatoid arthritis. Surgical history significant for aortic valve replacement, partial hysterectomy, bladder repair, cholecystectomy, pacemaker insertion and multiple ERCPs(on Ursodiol daily). Patient presented to [facility] emergency room from her half-way facility with report of intermittent abdominal pain with chills and generalized weakness. Patient states that she has been having what she describes to be a dull aching intermittent right upper quadrant abdominal pain since March 2018. Patient endorsed accompanying weakness with nausea. Presently she denies abdominal pain or nausea. Patient states last EGD done in May 2019 out of state in [place] with unremarkable findings. Last colonoscopy per patient was done in 2014 where she underwent perforated bowel with surgical repair. CT scan on arrival showed common bile duct dilatation to 16 mm. Of note, patient endorses that she currently takes Eliquis, last dose 06/2019 8 AM. Our service has been consulted to evaluate patient for ERCP due to choledocholithiasis. Choledocholithiasis Patient endorses right upper quadrant pain intermittently since March 2018. Reports multiple ERCPs in the past, Ursodiol daily. 09/26/2018 CT abdomen and pelvis: Round hyperdensity in the expected region of the distal common bile duct measuring 16 mm consistent with probable choledocholithiasis. ERCP would be helpful for further evaluation and possible treatment of this finding if clinically indicated. Dilatation and pneumobilia involving the central intrahepatic and extrahepatic dilatation is seen. Multiple calcified nonobstructing left renal calculi. Bilateral renal cysts. Small umbilical hernia. Uncomplicated colonic diverticulosis. -WBC 7.4 hemoglobin 10.4 hematocrit 30.6 INR 1.2 -Total bilirubin 1.1 AST 159 ALT 179 alk phos 528 lipase 84 09/28/2018 patient is resting sitting up in a chair denies any current abdominal pain no nausea no vomiting. Labs reviewed which show hemoglobin 10.9, normal WBC count 5.1. Discussed again the plan for ERCP Sunday a.m. and maintain Eliquis on hold. We will continue to monitor patient's symptoms and labs. Plan Diet as tolerated per attending Monitor labs Consent for ERCP Sunday night Continue to hold Eliquis Bowel regimen as needed Okay to increase motility to be up in chair as tolerated Supportive care Patient was seen per myself and Dr. Parada, note was written on his behalf <Sarah Parker - Last Filed: 09/28/18 14:49> (1) Choledocholithiasis Status: Acute Code(s): K80.50 - Calculus of bile duct without cholangitis or cholecystitis without obstruction - Attending Attestation Agree with above assessment and plan. ERCP sunday. <Scarlett Parada - Last Filed: 09/29/18 11:20>
--- NOTE | 2018-09-28 15:56 | P.PNGS ---
Subjective Patient reports: feels better Interval history: NOTE FOR SURGICAL ATTENDING, DR. HAO VALLES Patient comfortable Ready for ERCP on Sunday Physical Exam Vital signs: Vital Signs 09/27/18 16:00 09/27/18 20:00 09/28/18 00:00 Temperature 97.2 F L 97.0 F L 97.5 F L Pulse Rate 60 60 Respiratory Rate 16 16 16 Blood Pressure 135/65 135/63 144/65 H Pulse Oximetry 98 96 96 09/28/18 08:00 09/28/18 12:00 Temperature 97.7 F 97 F L Pulse Rate 60 60 Respiratory Rate 17 17 Blood Pressure 172/79 H 147/71 H Pulse Oximetry 96 98 Intake & Output 09/27/18 09/28/18 09/28/18 18:59 06:59 18:59 Intake Total 700 / 700 480 / 480 720 / 720 Balance 700 / 700 480 / 480 720 / 720 Weight 70 kg Intake: Oral 700 / 700 480 / 480 720 / 720 Other: # Voids 3 # Urine Diapers 3 Date of Last Bowel Movement 09/27/18 09/28/18 # Bowel Movements 2 Narrative: Patient sitting up in chair No real complaints Mild soreness midepigastric right upper quadrant area Results - Labs 09/28/18 08:18 09/28/18 08:18 - Imaging Imaging: ITS Impressions Abdomen/Pelvis CT 09/26/18 14:46 CONCLUSION: 1. Round hyperdensity in the expected region of the distal common bile duct measuring 16 mm consistent with probable choledocholithiasis. ERCP would be helpful for further evaluation and possible treatment of this finding if clinically indicated. 2. Dilatation and pneumobilia involving the central intrahepatic and extrahepatic dilatation is seen. 3. Multiple calcified nonobstructing left renal calculi. 4. Bilateral renal cysts. 5. Small umbilical hernia. 6. Uncomplicated colonic diverticulosis. 7. Degenerative changes and scoliosis of the thoracolumbar spine are noted. 8. Grade I anterolisthesis of L5 in relation to S1. 9. Degenerative changes involving the hips are noted bilaterally. 10. Coronary artery calcifications. 11. Chronic interstitial changes involving the visualized lung bases. Chest X-Ray 09/26/18 14:46 CONCLUSION: 1. No acute cardiopulmonary disease. 2. Left-sided pacemaker. Gallbladder Ultrasound 09/26/18 15:39 CONCLUSION: 1. The common bile duct is dilated to 14 mm, though the distal common bile duct cannot be visualized due to shadowing from bowel gas. Recommend consideration for ERCP given the suspicion for choledocholithiasis based on CT. 2. Cholecystectomy. 3. Right upper pole renal cyst. Assessment and Plan - Assessment (1) Status post cholecystectomy Code(s): Z90.49 - Acquired absence of other specified parts of digestive tract Status: Acute (2) Choledocholithiasis Code(s): K80.50 - Calculus of bile duct without cholangitis or cholecystitis without obstruction Status: Acute - Plan 88-year-old female with choledocholithiasis. This is the fourth time this is happened after her cholecystectomy from 10 years ago She set for ERCP on Sunday - Attending Attestation NOTE FOR SURGICAL ATTENDING, DR. HAO VALLES I attest that I had a [id number] encounter with the patient on the same day, and personally performed and documented my assessment and findings in the medical record. The following services were provided during this hospital visit: Chart data review, vital sign assessments/reviewing monitor data Review of consultations notes if present. Medication orders/review and/or management Ordering and/or reviewing lab tests Ordering and/or interpreting/reviewing x-rays and/or diagnostic studies Care of the patient and discussion of the patient with the care team Documentation time To help prompt me to consider important information that might be impacting today's encounter and assessment, Information from prior notes written by myself or my colleagues may have been "brought forward/copy and pasted" into today's note.
[2018-09-29] MEDS: Multivitamin/Minerals Therapeutic Tablet PO SCH (09:06)
[2018-09-29] MEDS: Pantoprazole Sodium 20 MG DR Tablet PO SCH (09:06)
[2018-09-29] MEDS: Lisinopril 10 MG Tablet PO SCH (09:06)
[2018-09-29] MEDS: amLODIPine 5 MG Tablet PO SCH (09:06)
[2018-09-29] MEDS: Metoprolol Tartrate 25 MG Tablet PO SCH ×2 (09:06→20:51)
[2018-09-29] MEDS: Lactobacillus Acidophilus/L. Spores Tablet PO SCH (09:06)
--- NOTE | 2018-09-29 10:47 | P.PNGS ---
Subjective Patient reports: feels better, still having pain, tolerating liquids well Physical Exam Vital signs: Vital Signs 09/28/18 12:00 09/28/18 16:00 09/28/18 20:00 Temperature 97 F L 97.6 F 97.2 F L Pulse Rate 60 60 60 Respiratory Rate 17 17 20 Blood Pressure 147/71 H 147/71 H 145/70 H Pulse Oximetry 98 97 98 09/29/18 00:00 09/29/18 08:00 Temperature 97.8 F 97.5 F L Pulse Rate 63 60 Respiratory Rate 17 16 Blood Pressure 135/62 141/66 H Pulse Oximetry 95 95 Intake & Output 09/28/18 09/29/18 09/29/18 18:59 06:59 18:59 Intake Total 720 / 720 100 / 100 Balance 720 / 720 100 / 100 Weight 71.2 kg Intake: Oral 720 / 720 100 / 100 Other: # Voids 5 # Urine Diapers 3 Date of Last Bowel Movement 09/28/18 - Routine Abdominal Exam Present: soft, normoactive bowel sounds, tenderness Results - Labs 09/28/18 08:18 09/28/18 08:18 - Imaging Imaging: ITS Impressions Abdomen/Pelvis CT 09/26/18 14:46 CONCLUSION: 1. Round hyperdensity in the expected region of the distal common bile duct measuring 16 mm consistent with probable choledocholithiasis. ERCP would be helpful for further evaluation and possible treatment of this finding if clinically indicated. 2. Dilatation and pneumobilia involving the central intrahepatic and extrahepatic dilatation is seen. 3. Multiple calcified nonobstructing left renal calculi. 4. Bilateral renal cysts. 5. Small umbilical hernia. 6. Uncomplicated colonic diverticulosis. 7. Degenerative changes and scoliosis of the thoracolumbar spine are noted. 8. Grade I anterolisthesis of L5 in relation to S1. 9. Degenerative changes involving the hips are noted bilaterally. 10. Coronary artery calcifications. 11. Chronic interstitial changes involving the visualized lung bases. Chest X-Ray 09/26/18 14:46 CONCLUSION: 1. No acute cardiopulmonary disease. 2. Left-sided pacemaker. Gallbladder Ultrasound 09/26/18 15:39 CONCLUSION: 1. The common bile duct is dilated to 14 mm, though the distal common bile duct cannot be visualized due to shadowing from bowel gas. Recommend consideration for ERCP given the suspicion for choledocholithiasis based on CT. 2. Cholecystectomy. 3. Right upper pole renal cyst. Assessment and Plan - Assessment (1) Status post cholecystectomy Code(s): Z90.49 - Acquired absence of other specified parts of digestive tract Status: Acute (2) Choledocholithiasis Code(s): K80.50 - Calculus of bile duct without cholangitis or cholecystitis without obstruction Status: Acute - Plan no surgery indicated needs ERCP or PTC
--- NOTE | 2018-09-29 10:59 | P.PNFP ---
Subjective Interval history: She tells me the abd pain persists but she is tolerating it. She slept well last night and is afebrile with stable VS in NAD. Results - Labs Result diagrams: 09/28/18 08:18 09/28/18 08:18 Physical Exam Vital signs: Vital Signs 09/28/18 12:00 09/28/18 16:00 09/28/18 20:00 Temperature 97 F L 97.6 F 97.2 F L Pulse Rate 60 60 60 Respiratory Rate 17 17 20 Blood Pressure 147/71 H 147/71 H 145/70 H Pulse Oximetry 98 97 98 09/29/18 00:00 09/29/18 08:00 Temperature 97.8 F 97.5 F L Pulse Rate 63 60 Respiratory Rate 17 16 Blood Pressure 135/62 141/66 H Pulse Oximetry 95 95 Intake & Output 09/28/18 09/29/18 09/29/18 18:59 06:59 18:59 Intake Total 720 / 720 100 / 100 Balance 720 / 720 100 / 100 Weight 71.2 kg Intake: Oral 720 / 720 100 / 100 Other: # Voids 5 # Urine Diapers 3 Date of Last Bowel Movement 09/28/18 - Constitutional no acute distress - Routine HEENT Exam Head: Present: normocephalic Eye: Present: PERRL, normal accommodation ENT: Present: mucous membranes moist - Routine Neck Exam Present: supple, full ROM - Routine Respiratory Exam Present: CTA bilaterally - Routine Cardiovascular Exam Present: RRR, S1, S2 - Routine Abdominal Exam Present: soft, normoactive bowel sounds - Routine Extremities Exam Absent: cyanosis - Routine Skin Exam Present: intact - Routine Neurological Exam Present: alert, oriented X3 - Detailed Neurological Exam: Coma Scale Eye Opening: Spontaneous Verbal Response: Oriented Motor Response: Obey commands Jeremías Coma Scale Total: 15 - Routine Psychiatric Exam Present: normal affect, normal thought process Assessment and Plan - Assessment (1) Choledocholithiasis Code(s): K80.50 - Calculus of bile duct without cholangitis or cholecystitis without obstruction Status: Acute Plan: ERCP Sunday. (2) Hypertension Code(s): I10 - Essential (primary) hypertension Status: Acute Plan: Added amlodipine 5 mg to her regimen due to poorly controlled HTN on lisinopril alone. Will monitor and titrate dose as needed but BP better today. - Assessment and Plan 09/27/18 - She is for ERCP today per GI/Surgery for choledochocholelithiasis 09/28/18 - ERCP postponed until Sunday. HTN not well controlled on low dose ACEI so I have added amlodipine 5 mg a day and will follow and titrate as needed. She is afebrile and in NAD at this time. 09/29/18 - ERCP scheduled for Sunday. Consults by Surgery and GI noted as they follow along. Pain level is low but persists unchanged. BP is under acceptable control. (2) Hypertension Qualifiers: Hypertension type: essential hypertension Qualified Code(s): I10 - Essential (primary) hypertension
--- NOTE | 2018-09-29 14:50 | P.PNGI ---
Subjective Interval history: Patient sitting up in chair nausea and vomiting x1 this a.m. Occasional generalized abdominal discomfort <Sarah Parker - Last Filed: 09/29/18 14:48> Physical Exam Vital signs: Vital Signs 09/28/18 16:00 09/28/18 20:00 09/29/18 00:00 Temperature 97.6 F 97.2 F L 97.8 F Pulse Rate 60 60 63 Respiratory Rate 17 20 17 Blood Pressure 147/71 H 145/70 H 135/62 Pulse Oximetry 97 98 95 09/29/18 08:00 Temperature 97.5 F L Pulse Rate 60 Respiratory Rate 16 Blood Pressure 141/66 H Pulse Oximetry 95 Intake & Output 09/28/18 09/29/18 09/29/18 18:59 06:59 18:59 Intake Total 720 / 720 100 / 100 Balance 720 / 720 100 / 100 Weight 71.2 kg Intake: Oral 720 / 720 100 / 100 Other: # Voids 5 # Urine Diapers 3 Date of Last Bowel Movement 09/28/18 09/28/18 - Constitutional mild distress, disheveled, cooperative - Routine HEENT Exam ENT: Present: mucous membranes dry - Routine Neck Exam Present: supple - Routine Respiratory Exam Present: decreased breath sounds (No obvious wheezing or rhonchi) - Routine Cardiovascular Exam Present: S1, S2 - Routine Abdominal Exam Present: soft (Mild discomfort to light palpation at times nausea and vomiting x1 this a.m., no obvious distention) <Sarah Parker - Last Filed: 09/29/18 14:48> Vital signs: Vital Signs 09/28/18 20:00 09/29/18 00:00 09/29/18 08:00 Temperature 97.2 F L 97.8 F 97.5 F L Pulse Rate 60 63 60 Respiratory Rate 20 17 16 Blood Pressure 145/70 H 135/62 141/66 H Pulse Oximetry 98 95 95 09/29/18 16:00 Temperature 97.3 F L Pulse Rate 60 Respiratory Rate 16 Blood Pressure 148/70 H Pulse Oximetry 98 Intake & Output 09/28/18 09/29/18 09/29/18 18:59 06:59 18:59 Intake Total 720 / 720 100 / 100 320 / 320 Balance 720 / 720 100 / 100 320 / 320 Weight 71.2 kg Intake: Oral 720 / 720 100 / 100 320 / 320 Other: # Voids 5 # Urine Diapers 3 3 Date of Last Bowel Movement 09/28/18 09/28/18 <Scarlett Parada - Last Filed: 09/29/18 18:54> Results - Labs CBC & Chem 7: 09/28/18 08:18 09/28/18 08:18 <Sarah Parker - Last Filed: 09/29/18 14:48> - Labs CBC & Chem 7: 09/28/18 08:18 09/28/18 08:18 <Scarlett Parada - Last Filed: 09/29/18 18:54> Assessment and Plan (1) Choledocholithiasis Status: Acute Code(s): K80.50 - Calculus of bile duct without cholangitis or cholecystitis without obstruction - Plan Patient is a pleasant 88-year-old female with past medical history significant for GERD, heart failure, hypertension, aortic valve stenosis, osteoporosis, pacemaker, atrial fibrillation and rheumatoid arthritis. Surgical history significant for aortic valve replacement, partial hysterectomy, bladder repair, cholecystectomy, pacemaker insertion and multiple ERCPs(on Ursodiol daily). Patient presented to [facility] emergency room from her shelter facility with report of intermittent abdominal pain with chills and generalized weakness. Patient states that she has been having what she describes to be a dull aching intermittent right upper quadrant abdominal pain since March 2018. Patient endorsed accompanying weakness with nausea. Presently she denies abdominal pain or nausea. Patient states last EGD done in May 2019 out of state in [place] with unremarkable findings. Last colonoscopy per patient was done in 2014 where she underwent perforated bowel with surgical repair. CT scan on arrival showed common bile duct dilatation to 16 mm. Of note, patient endorses that she currently takes Eliquis, last dose 06/2019 8 AM. Our service has been consulted to evaluate patient for ERCP due to choledocholithiasis. Choledocholithiasis Patient endorses right upper quadrant pain intermittently since March 2018. Reports multiple ERCPs in the past, Ursodiol daily. 09/26/2018 CT abdomen and pelvis: Round hyperdensity in the expected region of the distal common bile duct measuring 16 mm consistent with probable choledocholithiasis. ERCP would be helpful for further evaluation and possible treatment of this finding if clinically indicated. Dilatation and pneumobilia involving the central intrahepatic and extrahepatic dilatation is seen. Multiple calcified nonobstructing left renal calculi. Bilateral renal cysts. Small umbilical hernia. Uncomplicated colonic diverticulosis. -WBC 7.4 hemoglobin 10.4 hematocrit 30.6 INR 1.2 -Total bilirubin 1.1 AST 159 ALT 179 alk phos 528 lipase 84 09/28/2018 patient is resting sitting up in a chair denies any current abdominal pain no nausea no vomiting. Labs reviewed which show hemoglobin 10.9, normal WBC count 5.1. Discussed again the plan for ERCP Sunday a.m. and maintain Eliquis on hold. We will continue to monitor patient's symptoms and labs. 09/29/2018 mild nausea and vomiting this a.m. mild abdominal discomfort off and, plan for ERCP still in place no obvious bleeding continue to monitor labs Plan Diet, only as tolerated n.p.o. at midnight Monitor labs Consent for ERCP Sunday Continue to hold Eliquis Supportive care Patient was seen per myself and Dr. Parada, note was written on his behalf <Sarah Parker - Last Filed: 09/29/18 14:48> (1) Choledocholithiasis Status: Acute Code(s): K80.50 - Calculus of bile duct without cholangitis or cholecystitis without obstruction - Attending Attestation As above, will proceed with ERCP in AM, currently symptomatic again. Further recommendations to follow. <Scarlett Parada - Last Filed: 09/29/18 18:54>
[2018-09-30] MEDS ORDERED: Chlorhexidine Gluconate 2% 1 Pack (2 Cloths) TOPICAL ONE (01:26)
[2018-09-30] MEDS: Multivitamin/Minerals Therapeutic Tablet PO SCH (08:42)
[2018-09-30] MEDS: Pantoprazole Sodium 20 MG DR Tablet PO SCH (08:42)
[2018-09-30] MEDS: Lisinopril 10 MG Tablet PO SCH (08:42)
[2018-09-30] MEDS: Lactobacillus Acidophilus/L. Spores Tablet PO SCH (08:42)
[2018-09-30] MEDS: Metoprolol Tartrate 25 MG Tablet PO SCH ×2 (08:42→21:43)
[2018-09-30] MEDS: amLODIPine 5 MG Tablet PO SCH (08:42)
--- NOTE | 2018-09-30 09:36 | P.PNGS ---
Subjective Patient reports: no new complaints (npo for ercp) Physical Exam Vital signs: Vital Signs 09/29/18 16:00 09/29/18 20:00 09/30/18 00:00 Temperature 97.3 F L 97.5 F L 97.8 F Pulse Rate 60 60 60 Respiratory Rate 16 18 20 Blood Pressure 148/70 H 128/68 121/56 L Pulse Oximetry 98 98 96 09/30/18 08:00 Temperature 97.8 F Pulse Rate 60 Respiratory Rate 16 Blood Pressure 170/70 H Pulse Oximetry 96 Intake & Output 09/29/18 09/30/18 09/30/18 18:59 06:59 18:59 Intake Total 320 / 320 Balance 320 / 320 Weight 73.4 kg Intake: Oral 320 / 320 Other: # Voids 4 # Urine Diapers 3 Date of Last Bowel Movement 09/28/18 # Bowel Movements 1 - Routine Abdominal Exam Present: soft (nt/nd) Results - Labs 09/28/18 08:18 09/28/18 08:18 - Imaging Imaging: ITS Impressions Abdomen/Pelvis CT 09/26/18 14:46 CONCLUSION: 1. Round hyperdensity in the expected region of the distal common bile duct measuring 16 mm consistent with probable choledocholithiasis. ERCP would be helpful for further evaluation and possible treatment of this finding if clinically indicated. 2. Dilatation and pneumobilia involving the central intrahepatic and extrahepatic dilatation is seen. 3. Multiple calcified nonobstructing left renal calculi. 4. Bilateral renal cysts. 5. Small umbilical hernia. 6. Uncomplicated colonic diverticulosis. 7. Degenerative changes and scoliosis of the thoracolumbar spine are noted. 8. Grade I anterolisthesis of L5 in relation to S1. 9. Degenerative changes involving the hips are noted bilaterally. 10. Coronary artery calcifications. 11. Chronic interstitial changes involving the visualized lung bases. Chest X-Ray 09/26/18 14:46 CONCLUSION: 1. No acute cardiopulmonary disease. 2. Left-sided pacemaker. Gallbladder Ultrasound 09/26/18 15:39 CONCLUSION: 1. The common bile duct is dilated to 14 mm, though the distal common bile duct cannot be visualized due to shadowing from bowel gas. Recommend consideration for ERCP given the suspicion for choledocholithiasis based on CT. 2. Cholecystectomy. 3. Right upper pole renal cyst. Assessment and Plan - Assessment (1) Status post cholecystectomy Code(s): Z90.49 - Acquired absence of other specified parts of digestive tract Status: Acute (2) Choledocholithiasis Code(s): K80.50 - Calculus of bile duct without cholangitis or cholecystitis without obstruction Status: Acute - Plan choledocholithiasis PLAN ERCP today await results pt may need ptc if unable to do ercp, surgery as last resort labs in am
--- NOTE | 2018-09-30 11:27 | GIPROC ---
[facility] [address] [facility]. [facility], [address] ERCP PROCEDURE REPORT EXAM DATE: 09/30/2018 PATIENT NAME: Venice Mcclendon MR #: [id number] BIRTHDATE: 1930 ATTENDING: Cony Castanon MD ORDER #: [id number] DESPATCHING AND RECEIVING CLERK: Angella Long Howard, Jennifer, and Gladys Fried STATUS: inpatient INDICATIONS: The patient is a 88 yr old female here for an ERCP due to established bile duct stone(s) PROCEDURE PERFORMED: ERCP with removal of calculus/calculi ERCP with stent placement MEDICATIONS: None and Per Anesthesia. CONSENT: The patient understands the risks and benefits of the procedure and understands that these risks include, but are not limited to: sedation, allergic reaction, infection, perforation and/or bleeding. Alternative means of evaluation and treatment include, among others: physical exam, x-rays, and/or surgical intervention. The patient elects to proceed with this endoscopic procedure. medical equipment was checked for proper function. Hand hygiene and appropriate measures for infection prevention was taken. After the risks, benefits and alternatives of the procedure were thoroughly explained, Informed was verified, confirmed and timeout was successfully executed by the treatment team. With the patient in left semi-prone position, medications were administered intravenously.The [employer]ax [id number] was passed from the mouth into the esophagus and further advanced from the esophagus into the stomach. From stomach scope was directed to the second portion of the duodenum. Major papilla was aligned with the duodenoscope. The scope position was confirmed fluoroscopically. Rest of the findings/therapeutics are given below. The scope was then completely withdrawn from the patient and the procedure completed. The pulse, BP, and O2 saturation were monitored and documented by the physician and the nursing staff throughout the entire procedure. The patient was cared for as planned according to standard protocol. The patient was then discharged to recovery in stable condition and with appropriate post procedure care. There was a medium sized periampullary diverticulum. A single filling defect was seen in the common bile duct. Large 1.8mm stone in a very dilated CBD. Multiple smaaler stones and sludge emoved. A 8.5 x 9 cm biliary stent left in place. ADVERSE EVENT: There were no complications. IMPRESSIONS: 1. Medium periampullary diverticulum 2. Large 1.8mm stone in a very dilated CBD. Multiple smaaler stones and sludge emoved. A 8.5 x 9 cm biliary stent left in place RECOMMENDATIONS: 1. Liver enzymes 2. Fu as outpatient for dpy glass ERCP with Lithotripsy REPEAT EXAM: Return 2 weeks ERCP Cony Castanon MD eSigned: Cony Castanon MD 09/30/2018 11:27 AM cc:
--- NOTE | 2018-09-30 11:33 | P.PNFP ---
Subjective Interval history: feeling better but upper abd discomfort remains will have ERCP today Results - Labs Result diagrams: 09/28/18 08:18 09/28/18 08:18 Physical Exam Vital signs: Vital Signs 09/29/18 16:00 09/29/18 20:00 09/30/18 00:00 Temperature 97.3 F L 97.5 F L 97.8 F Pulse Rate 60 60 60 Respiratory Rate 16 18 20 Blood Pressure 148/70 H 128/68 121/56 L Pulse Oximetry 98 98 96 09/30/18 08:00 Temperature 97.8 F Pulse Rate 60 Respiratory Rate 16 Blood Pressure 170/70 H Pulse Oximetry 96 Intake & Output 09/29/18 09/30/18 09/30/18 18:59 06:59 18:59 Intake Total 320 / 320 Balance 320 / 320 Weight 73.4 kg Intake: Oral 320 / 320 Other: # Voids 4 # Urine Diapers 3 Date of Last Bowel Movement 09/28/18 09/30/18 # Bowel Movements 1 - Constitutional no acute distress - Routine HEENT Exam Head: Present: normocephalic Eye: Present: EOMI, PERRL ENT: Present: mucous membranes moist - Routine Neck Exam Present: supple - Routine Respiratory Exam Present: CTA bilaterally - Routine Cardiovascular Exam Present: RRR - Routine Abdominal Exam Present: soft Comments: minimal tenderness epigastrium Assessment and Plan - Assessment (1) Choledocholithiasis Code(s): K80.50 - Calculus of bile duct without cholangitis or cholecystitis without obstruction Status: Acute Plan: ERCP Sunday. (2) Hypertension Code(s): I10 - Essential (primary) hypertension Status: Acute Plan: Added amlodipine 5 mg to her regimen due to poorly controlled HTN on lisinopril alone. Will monitor and titrate dose as needed but BP better today. - Assessment and Plan 09/27/18 - She is for ERCP today per GI/Surgery for choledochocholelithiasis 09/28/18 - ERCP postponed until Sunday. HTN not well controlled on low dose ACEI so I have added amlodipine 5 mg a day and will follow and titrate as needed. She is afebrile and in NAD at this time. 09/29/18 - ERCP scheduled for Sunday. Consults by Surgery and GI noted as they follow along. Pain level is low but persists unchanged. BP is under acceptable control. 09/30 pt to have ERCP today will fu in am (2) Hypertension Qualifiers: Hypertension type: essential hypertension Qualified Code(s): I10 - Essential (primary) hypertension
--- NOTE | 2018-09-30 11:56 | FL ---
EXAM DATE: 09/30/2018 11:38 AM EST AGE/SEX: 88 years / Female INDICATIONS: Obstruction, stone removal and stent placement. CLINICAL DATA: This is the patient's initial encounter. Patient reports that signs and symptoms have been present for 1 day and indicates a pain score of Nonresponsive. MEDICAL/SURGICAL HISTORY: Gastroesophageal reflux disease. Aortic valve stenosis. Heart failure . AFIB. Pacemaker. COMPARISON: No prior exams available for comparison. FLUORO TIME: 1.54 IMAGE COUNT: 9 RADIATION DOSE: 265.585 DAP FINDINGS: An ERCP was performed by the ordering physician. The images demonstrate contrast present within mild ly distended common bile duct and intrahepatic biliary tree. There is a round filling defect present in the common bile duct on image 8 and 9. A stent is noted within the common bile duct on the final i mage. CONCLUSION: Stent placement as above. Electronically signed by: Dale Shields MD Board Certified Radiologist 09/30/2018 11:55 AM EST
[2018-09-30 13:33] LABS: Baso % (Auto) 0.6 % (0.0-2.0); Eos # (Auto) 0.1 th/mm3 (0.0-0.4); Eos % (Auto) 1.4 % (0.0-4.0); Hematocrit 32.2 % (35.0-46.0); Hemoglobin 10.7 gm/dL (11.6-15.3); Lymph # (Auto) 1.2 th/mm3 (1.0-4.8); Lymph % (Auto) 22.3 % (9.0-44.0); Mean Corpuscular HGB Conc 33.2 % (32.0-36.0); Mean Corpuscular Hemoglobin 31.6 pg (27.0-34.0); Mean Corpuscular Volume 95.1 fL (80.0-100.0); Mean Platelet Volume 7.9 fL (7.0-11.0); Mono # (Auto) 0.5 th/mm3 (0.0-0.9); Mono % (Auto) 9.9 % (0.0-8.0); Neut # (Auto) 3.5 th/mm3 (1.8-7.7); Neut % (Auto) 65.8 % (16.0-70.0); Platelet Count 185 th/mm3 (150-450); Red Blood Count 3.38 mil/mm3 (4.00-5.30); Red Cell Distribution Width 14.9 % (11.6-17.2); White Blood Count 5.3 th/mm3 (4.0-11.0)
[2018-09-30 13:53] LABS: Albumin 2.7 g/dL (3.4-5.0); Anion Gap 7 meq/L (5-15); Aspartate Aminotransferase 58 U/L (15-37); Blood Urea Nitrogen 6 mg/dL (7-18); Calcium 8.6 mg/dL (8.5-10.1); Carbon Dioxide 28.8 meq/L (21.0-32.0); Chloride 104 meq/L (98-107); Glomerular Filtration Rate 63 mL/min (>89); Glucose,Random 88 mg/dL (74-106); Sodium 140 meq/L (136-145)
[2018-09-30 13:54] LABS: Alanine Aminotransferase 100 U/L (10-53)
[2018-09-30 13:56] LABS: Alkaline Phosphatase 424 U/L (45-117); Total Protein 6.2 g/dL (6.4-8.2)
--- NOTE | 2018-10-01 08:52 | P.PNGS ---
Subjective Patient reports: no new complaints, feels better, still having pain (right sided pain, pt wants to eat) Physical Exam Vital signs: Vital Signs 09/30/18 11:43 09/30/18 13:29 09/30/18 16:00 Temperature 97.5 F L 97.4 F L 97.6 F Pulse Rate 60 62 60 Respiratory Rate 20 17 17 Blood Pressure 151/72 H 145/67 H 155/72 H Pulse Oximetry 97 96 97 09/30/18 20:00 09/30/18 23:38 10/01/18 04:00 Temperature 98.1 F 98.2 F 98.5 F Pulse Rate 65 60 60 Respiratory Rate Blood Pressure 130/63 142/68 H 136/63 Pulse Oximetry 94 L 95 95 Intake & Output 09/30/18 10/01/18 10/01/18 18:59 06:59 18:59 Intake Total 1400 / 1400 900 / 900 Balance 1400 / 1400 900 / 900 Weight 73.4 kg Intake: Oral 900 / 900 900 / 900 Anesthesia Amount 500 / 500 Other: # Voids 4 6 Date of Last Bowel Movement 09/30/18 09/30/18 - Routine Abdominal Exam Present: soft (mild ttp ruq) Results - Labs 09/30/18 13:01 09/30/18 13:01 Laboratory Results - last 24 hr 09/30/18 09/30/18 13:01 13:01 WBC 5.3 RBC 3.38 L Hgb 10.7 L Hct 32.2 L MCV 95.1 MCH 31.6 MCHC 33.2 RDW 14.9 Plt Count 185 MPV 7.9 Neut % (Auto) 65.8 Lymph % (Auto) 22.3 [place] % (Auto) 9.9 H Eos % (Auto) 1.4 Baso % (Auto) 0.6 Neut # (Auto) 3.5 Lymph # (Auto) 1.2 [place] # (Auto) 0.5 Eos # (Auto) 0.1 Baso # (Auto) 0.0 WBC Differential . Differential Comment Auto diff final Sodium 140 Potassium 4.0 Chloride 104 Carbon Dioxide 28.8 Anion Gap 7 BUN 6 L Creatinine 0.85 Estimated GFR 63 L Random Glucose 88 Calcium 8.6 Total Bilirubin 0.8 AST 58 H ALT 100 H Alkaline Phosphatase 424 H Total Protein 6.2 L D Albumin 2.7 L - Imaging Imaging: ITS Impressions Abdomen/Pelvis CT 09/26/18 14:46 CONCLUSION: 1. Round hyperdensity in the expected region of the distal common bile duct measuring 16 mm consistent with probable choledocholithiasis. ERCP would be helpful for further evaluation and possible treatment of this finding if clinically indicated. 2. Dilatation and pneumobilia involving the central intrahepatic and extrahepatic dilatation is seen. 3. Multiple calcified nonobstructing left renal calculi. 4. Bilateral renal cysts. 5. Small umbilical hernia. 6. Uncomplicated colonic diverticulosis. 7. Degenerative changes and scoliosis of the thoracolumbar spine are noted. 8. Grade I anterolisthesis of L5 in relation to S1. 9. Degenerative changes involving the hips are noted bilaterally. 10. Coronary artery calcifications. 11. Chronic interstitial changes involving the visualized lung bases. Chest X-Ray 09/26/18 14:46 CONCLUSION: 1. No acute cardiopulmonary disease. 2. Left-sided pacemaker. Gallbladder Ultrasound 09/26/18 15:39 CONCLUSION: 1. The common bile duct is dilated to 14 mm, though the distal common bile duct cannot be visualized due to shadowing from bowel gas. Recommend consideration for ERCP given the suspicion for choledocholithiasis based on CT. 2. Cholecystectomy. 3. Right upper pole renal cyst. GI Procedure 09/30/18 00:00 CONCLUSION: Stent placement as above. Assessment and Plan - Assessment (1) Status post cholecystectomy Code(s): Z90.49 - Acquired absence of other specified parts of digestive tract Status: Acute (2) Choledocholithiasis Code(s): K80.50 - Calculus of bile duct without cholangitis or cholecystitis without obstruction Status: Acute - Plan choledocholithiasis PLAN ERCP successful for stent placement, stones removed, still residule stone planning for repeat ercp in 2 weeks pt may need ptc if unable to do ercp, surgery as last resort labs in am pending surgery will follow prn, reconsult if needed ok to advance diet if ok with GI
[2018-10-01] MEDS: amLODIPine 5 MG Tablet PO SCH (09:01)
[2018-10-01] MEDS: Multivitamin/Minerals Therapeutic Tablet PO SCH (09:01)
[2018-10-01] MEDS: Pantoprazole Sodium 20 MG DR Tablet PO SCH (09:01)
[2018-10-01] MEDS: Metoprolol Tartrate 25 MG Tablet PO SCH ×2 (09:01→20:45)
[2018-10-01] MEDS: Lisinopril 10 MG Tablet PO SCH (09:01)
[2018-10-01] MEDS: Lactobacillus Acidophilus/L. Spores Tablet PO SCH (09:01)
--- NOTE | 2018-10-01 10:08 | P.PNGI ---
Subjective Interval history: Pt is resting in bed, still with some RUQ abdominal soreness but overall improving. States she is hungry, will advance her diet. Tolerating full liquid diet without nausea or vomiting. <Billie Gutierrez - Last Filed: 10/01/18 10:04> Physical Exam Vital signs: Vital Signs 09/30/18 11:43 09/30/18 13:29 09/30/18 16:00 Temperature 97.5 F L 97.4 F L 97.6 F Pulse Rate 60 62 60 Respiratory Rate 20 17 17 Blood Pressure 151/72 H 145/67 H 155/72 H Pulse Oximetry 97 96 97 09/30/18 20:00 09/30/18 23:38 10/01/18 04:00 Temperature 98.1 F 98.2 F 98.5 F Pulse Rate 65 60 60 Respiratory Rate 19 19 Blood Pressure 130/63 142/68 H 136/63 Pulse Oximetry 94 L 95 95 Intake & Output 09/30/18 10/01/18 10/01/18 18:59 06:59 18:59 Intake Total 1400 / 1400 900 / 900 Balance 1400 / 1400 900 / 900 Weight 73.4 kg Intake: Oral 900 / 900 900 / 900 Anesthesia Amount 500 / 500 Other: # Voids 4 6 Date of Last Bowel Movement 09/30/18 09/30/18 10/01/18 - Constitutional no acute distress - Routine HEENT Exam Head: Present: normocephalic, atraumatic - Routine Respiratory Exam Absent: accessory muscle use - Routine Abdominal Exam Present: soft, normoactive bowel sounds, tenderness (mild RUQ tenderness ). Absent: distended - Routine Skin Exam Present: dry, warm - Routine Neurological Exam Present: alert, oriented X3 <Billie Gutierrez - Last Filed: 10/01/18 10:04> Vital signs: Vital Signs 09/30/18 16:00 09/30/18 20:00 09/30/18 23:38 Temperature 97.6 F 98.1 F 98.2 F Pulse Rate 60 65 60 Respiratory Rate 17 19 Blood Pressure 155/72 H 130/63 142/68 H Pulse Oximetry 97 94 L 95 10/01/18 04:00 10/01/18 08:00 10/01/18 12:00 Temperature 98.5 F 98.6 F 97.6 F Pulse Rate 60 61 60 Respiratory Rate 19 17 17 Blood Pressure 136/63 139/62 138/69 Pulse Oximetry 95 94 L 94 L Intake & Output 09/30/18 10/01/18 10/01/18 18:59 06:59 18:59 Intake Total 1400 / 1400 900 / 900 Balance 1400 / 1400 900 / 900 Weight 73.4 kg Intake: Oral 900 / 900 900 / 900 Anesthesia Amount 500 / 500 Other: # Voids 4 6 Date of Last Bowel Movement 09/30/18 09/30/18 10/01/18 <Cony Castanon - Last Filed: 10/01/18 14:24> Results - Labs CBC & Chem 7: 09/30/18 13:01 09/30/18 13:01 Laboratory Results - last 24 hr 09/30/18 09/30/18 13:01 13:01 WBC 5.3 RBC 3.38 L Hgb 10.7 L Hct 32.2 L MCV 95.1 MCH 31.6 MCHC 33.2 RDW 14.9 Plt Count 185 MPV 7.9 Neut % (Auto) 65.8 Lymph % (Auto) 22.3 [place] % (Auto) 9.9 H Eos % (Auto) 1.4 Baso % (Auto) 0.6 Neut # (Auto) 3.5 Lymph # (Auto) 1.2 [place] # (Auto) 0.5 Eos # (Auto) 0.1 Baso # (Auto) 0.0 WBC Differential . Differential Comment Auto diff final Sodium 140 Potassium 4.0 Chloride 104 Carbon Dioxide 28.8 Anion Gap 7 BUN 6 L Creatinine 0.85 Estimated GFR 63 L Random Glucose 88 Calcium 8.6 Total Bilirubin 0.8 AST 58 H ALT 100 H Alkaline Phosphatase 424 H Total Protein 6.2 L D Albumin 2.7 L - Imaging Impressions GI Procedure 09/30/18 00:00 CONCLUSION: Stent placement as above. <Billie Gutierrez - Last Filed: 10/01/18 10:04> - Labs CBC & Chem 7: 10/01/18 09:44 10/01/18 09:44 Laboratory Results - last 24 hr 10/01/18 10/01/18 09:44 09:44 WBC 5.2 RBC 3.40 L Hgb 10.7 L Hct 31.8 L MCV 93.5 MCH 31.5 MCHC 33.7 RDW 14.7 Plt Count 190 MPV 7.9 Neut % (Auto) 65.3 Lymph % (Auto) 21.8 [place] % (Auto) 11.1 H Eos % (Auto) 1.1 Baso % (Auto) 0.7 Neut # (Auto) 3.4 Lymph # (Auto) 1.1 [place] # (Auto) 0.6 Eos # (Auto) 0.1 Baso # (Auto) 0.0 WBC Differential . Differential Comment Auto diff final Sodium 140 Potassium 3.7 Chloride 104 Carbon Dioxide 28.2 Anion Gap 8 BUN 7 Creatinine 1.00 Estimated GFR 53 L Random Glucose 133 H Calcium 8.3 L Total Bilirubin 0.7 AST 43 H ALT 85 H Alkaline Phosphatase 395 H Total Protein 6.2 L Albumin 2.6 L Lipase 54 L <Cony Castanon - Last Filed: 10/01/18 14:24> Assessment and Plan (1) Choledocholithiasis Status: Acute Code(s): K80.50 - Calculus of bile duct without cholangitis or cholecystitis without obstruction - Plan Assessment Recurrent choledocholithiasis despite history of cholecystectomy- CT abdomen and pelvis: Round hyperdensity in the expected region of the distal common bile duct measuring 16 mm consistent with probable choledocholithiasis. Dilatation and pneumobilia involving the central intrahepatic and extrahepatic dilatation is seen. Multiple calcified nonobstructing left renal calculi. Bilateral renal cysts. Small umbilical hernia. Uncomplicated colonic diverticulosis. Total bilirubin 1.1 AST 159 ALT 179 alk phos 528 lipase 84 ERCP (09/30/18) Medium periampullary diverticulum. Large 1.8mm stone in a very dilated CBD. Multiple smaller stones and sludge removed. A 8.5 x 9 cm biliary stent left in place (10/01) Labs from today are pending. Abdominal pain improving. No nausea or vomiting. Tolerating full liquid diet, will advance. Plan: Repeat LFTs from today pending If continuing to trend down OK for DC Advance diet Follow up with GI in 1 week Plans to schedule for spy glass ERCP with Lithotripsy This patient has been seen and examined by myself and Dr. Castanon and this note is written on his behalf <Billie Gutierrez - Last Filed: 10/01/18 10:04> (1) Choledocholithiasis Status: Acute Code(s): K80.50 - Calculus of bile duct without cholangitis or cholecystitis without obstruction - Plan Seen and examined with [facility], s/p ercp/stent. Needs outpatient spy glass with lithotripsy at [facility]. LFTs improving. GI fu upon dc. <Cony Castanon - Last Filed: 10/01/18 14:24>
[2018-10-01 10:40] LABS: Baso % (Auto) 0.7 % (0.0-2.0); Eos # (Auto) 0.1 th/mm3 (0.0-0.4); Eos % (Auto) 1.1 % (0.0-4.0); Hematocrit 31.8 % (35.0-46.0); Hemoglobin 10.7 gm/dL (11.6-15.3); Lymph # (Auto) 1.1 th/mm3 (1.0-4.8); Lymph % (Auto) 21.8 % (9.0-44.0); Mean Corpuscular HGB Conc 33.7 % (32.0-36.0); Mean Corpuscular Hemoglobin 31.5 pg (27.0-34.0); Mean Corpuscular Volume 93.5 fL (80.0-100.0); Mean Platelet Volume 7.9 fL (7.0-11.0); Mono # (Auto) 0.6 th/mm3 (0.0-0.9); Mono % (Auto) 11.1 % (0.0-8.0); Neut # (Auto) 3.4 th/mm3 (1.8-7.7); Neut % (Auto) 65.3 % (16.0-70.0); Platelet Count 190 th/mm3 (150-450); Red Cell Distribution Width 14.7 % (11.6-17.2); White Blood Count 5.2 th/mm3 (4.0-11.0)
[2018-10-01 11:05] LABS: Albumin 2.6 g/dL (3.4-5.0); Anion Gap 8 meq/L (5-15); Aspartate Aminotransferase 43 U/L (15-37); Blood Urea Nitrogen 7 mg/dL (7-18); Calcium 8.3 mg/dL (8.5-10.1); Carbon Dioxide 28.2 meq/L (21.0-32.0); Chloride 104 meq/L (98-107); Glomerular Filtration Rate 53 mL/min (>89); Glucose,Random 133 mg/dL (74-106); Lipase 54 U/L (73-393); Potassium 3.7 meq/L (3.5-5.1); Sodium 140 meq/L (136-145)
[2018-10-01 11:09] LABS: Alanine Aminotransferase 85 U/L (10-53); Alkaline Phosphatase 395 U/L (45-117); Total Protein 6.2 g/dL (6.4-8.2)
--- NOTE | 2018-10-01 11:59 | P.PNFP ---
Subjective Interval history: pt had ERCP yesterday has mild abd pain today Results - Labs Result diagrams: 10/01/18 09:44 10/01/18 09:44 Abnormal lab results 09/30/18 09/30/18 10/01/18 Range/Units 13:01 13:01 09:44 RBC 3.38 L 3.40 L (4.00-5.30) mil/mm3 Hgb 10.7 L 10.7 L (11.6-15.3) gm/dL Hct 32.2 L 31.8 L (35.0-46.0) % [place] % (Auto) 9.9 H 11.1 H (0.0-8.0) % BUN 6 L (7-18) mg/dL Estimated GFR 63 L (>89) mL/min Random Glucose (74-106) mg/dL Calcium (8.5-10.1) mg/dL AST 58 H (15-37) U/L ALT 100 H (10-53) U/L Alkaline Phosphatase 424 H (45-117) U/L Total Protein 6.2 L D (6.4-8.2) g/dL Albumin 2.7 L (3.4-5.0) g/dL Lipase (73-393) U/L 10/01/18 Range/Units 09:44 RBC (4.00-5.30) mil/mm3 Hgb (11.6-15.3) gm/dL Hct (35.0-46.0) % [place] % (Auto) (0.0-8.0) % BUN (7-18) mg/dL Estimated GFR 53 L (>89) mL/min Random Glucose 133 H (74-106) mg/dL Calcium 8.3 L (8.5-10.1) mg/dL AST 43 H (15-37) U/L ALT 85 H (10-53) U/L Alkaline Phosphatase 395 H (45-117) U/L Total Protein 6.2 L (6.4-8.2) g/dL Albumin 2.6 L (3.4-5.0) g/dL Lipase 54 L (73-393) U/L Short CBC 09/30/18 10/01/18 Range/Units 13:01 09:44 WBC 5.3 5.2 (4.0-11.0) th/mm3 Hgb 10.7 L 10.7 L (11.6-15.3) gm/dL Hct 32.2 L 31.8 L (35.0-46.0) % Plt Count 185 190 (150-450) th/mm3 BMP 09/30/18 10/01/18 13:01 09:44 Sodium 140 140 Potassium 4.0 3.7 Chloride 104 104 Carbon Dioxide 28.8 28.2 BUN 6 L 7 Creatinine 0.85 1.00 Calcium 8.6 8.3 L Liver Function 09/30/18 10/01/18 Range/Units 13:01 09:44 Total Bilirubin 0.8 0.7 (0.2-1.0) mg/dL AST 58 H 43 H (15-37) U/L ALT 100 H 85 H (10-53) U/L Alkaline Phosphatase 424 H 395 H (45-117) U/L Albumin 2.7 L 2.6 L (3.4-5.0) g/dL - Imaging Impressions GI Procedure 09/30/18 00:00 CONCLUSION: Stent placement as above. Physical Exam Vital signs: Vital Signs 09/30/18 13:29 09/30/18 16:00 09/30/18 20:00 Temperature 97.4 F L 97.6 F 98.1 F Pulse Rate 62 60 65 Respiratory Rate 17 17 19 Blood Pressure 145/67 H 155/72 H 130/63 Pulse Oximetry 96 97 94 L 09/30/18 23:38 10/01/18 04:00 10/01/18 08:00 Temperature 98.2 F 98.5 F 98.6 F Pulse Rate 60 60 61 Respiratory Rate 19 19 17 Blood Pressure 142/68 H 136/63 139/62 Pulse Oximetry 95 95 94 L Intake & Output 09/30/18 10/01/18 10/01/18 18:59 06:59 18:59 Intake Total 1400 / 1400 900 / 900 Balance 1400 / 1400 900 / 900 Weight 73.4 kg Intake: Oral 900 / 900 900 / 900 Anesthesia Amount 500 / 500 Other: # Voids 4 6 Date of Last Bowel Movement 09/30/18 09/30/18 10/01/18 - Constitutional no acute distress - Routine HEENT Exam Head: Present: normocephalic, atraumatic Eye: Present: EOMI, PERRL ENT: Present: mucous membranes moist - Routine Neck Exam Present: supple - Routine Respiratory Exam Present: CTA bilaterally - Routine Cardiovascular Exam Present: RRR - Routine Abdominal Exam Present: soft, normoactive bowel sounds Comments: mild epigastric tenderness Assessment and Plan - Assessment (1) Choledocholithiasis Code(s): K80.50 - Calculus of bile duct without cholangitis or cholecystitis without obstruction Status: Acute Plan: ERCP Sunday. (2) Hypertension Code(s): I10 - Essential (primary) hypertension Status: Acute Plan: Added amlodipine 5 mg to her regimen due to poorly controlled HTN on lisinopril alone. Will monitor and titrate dose as needed but BP better today. - Assessment and Plan 09/27/18 - She is for ERCP today per GI/Surgery for choledochocholelithiasis 09/28/18 - ERCP postponed until Sunday. HTN not well controlled on low dose ACEI so I have added amlodipine 5 mg a day and will follow and titrate as needed. She is afebrile and in NAD at this time. 09/29/18 - ERCP scheduled for Sunday. Consults by Surgery and GI noted as they follow along. Pain level is low but persists unchanged. BP is under acceptable control. 09/30 pt to have ERCP today will fu in am10/01 advancing diet today will dc home in am if well tolerated and cleared by consultants (2) Hypertension Qualifiers: Hypertension type: essential hypertension Qualified Code(s): I10 - Essential (primary) hypertension
[2018-10-02 08:17] VITALS: RESP 17; O2SAT 95
[2018-10-02] MEDS: Lactobacillus Acidophilus/L. Spores Tablet PO SCH (10:29)
[2018-10-02] MEDS: Pantoprazole Sodium 20 MG DR Tablet PO SCH (10:29)
[2018-10-02] MEDS: Multivitamin/Minerals Therapeutic Tablet PO SCH (10:29)
[2018-10-02] MEDS: amLODIPine 5 MG Tablet PO SCH (10:29)
[2018-10-02] MEDS: Metoprolol Tartrate 25 MG Tablet PO SCH (10:29)
[2018-10-02] MEDS: Lisinopril 10 MG Tablet PO SCH (10:30)
--- NOTE | 2018-10-02 10:32 | P.DS ---
Date of admission: 09/26/18 17:02 Primary care physician: UNKNOWN Brief History from admission: 88-year-old female presents to the emergency department sent from [facility] and rehab for evaluation of generalized weakness. Patient had a pacemaker placed in [facility] on Sunday and was transferred on Sunday to the rehab facility. She states that yesterday she started with a stomachache , chills and she slept all day. She denies any fever. She states she has been having these intermittent stomachaches and back pains recently. She has recently had an endoscopy in May which she states showed polyps which were removed. She states that she is generally weak today. She states that she normally is generally weak after she has a stomach aches. She denies any headache. No visual changes. She denies any chest pain or shortness of breath. No palpitations. She denies any current abdominal pain. She denies nausea, vomiting, diarrhea. She states she had a bowel movement this morning and denies blood in her stool. 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 She does have history of CAD, GERD, CHF, A. fib. Moderate severity. DS: Summary Hospital Course: 88-year-old female with past medical history significant for GERD, heart failure, hypertension, aortic valve stenosis, osteoporosis, pacemaker, atrial fibrillation and rheumatoid arthritis. Surgical history significant for aortic valve replacement, partial hysterectomy, bladder repair, cholecystectomy with multiple ERCP pacemaker insertion last week. Presented to hospital with complaints of a dull aching intermittent right upper quadrant abdominal pain and weakness with nausea. 09/26/2018 CT abdomen and pelvis: Round hyperdensity in the expected region of the distal common bile duct measuring 16 mm consistent with probable choledocholithiasis. General surgery consulted, MRCP recommended, she is unable to have that related to new pacemaker. GI consulted ERCP recommended with attempt for stone removal. ERCP done on 09/30/18 with Medium periampullary diverticulum Large 1.8mm stone in a very dilated CBD. Multiple smaller stones and sludge removed. A 8.5 x 9 cm biliary stent left in place she will follow up with Gi in 2 weeks for spy glass ERCP with Lithotripsy, return back to [facility] rehab. - Time Spent with Patient Total time spent providing and/or coordinating discharge services: 30 Less than 30 minutes - Quality: AMI Clinical Trial Participant: No - Quality: Stroke Symptom Onset Unknown: No - Quality: VTE Deep Vein Thrombosis/Pulmonary Embolism Present on Admission: No Exam Vital signs: Vital Signs 10/01/18 12:00 10/01/18 16:00 10/01/18 19:35 Temperature 97.6 F 97.8 F 98.3 F Pulse Rate 60 60 59 L Respiratory Rate 17 17 18 Blood Pressure 138/69 117/61 121/64 Pulse Oximetry 94 L 98 97 10/01/18 23:35 10/02/18 04:36 10/02/18 08:00 Temperature 97.8 F 98.2 F 98.3 F Pulse Rate 60 60 60 Respiratory Rate 18 18 17 Blood Pressure 145/63 H 114/56 L 163/70 H Pulse Oximetry 98 96 95 Intake & Output 10/01/18 10/02/18 10/02/18 18:59 06:59 18:59 Intake Total 850 / 850 Balance 850 / 850 Intake: Oral 850 / 850 Other: # Voids 6 2 Date of Last Bowel Movement 10/01/18 10/01/18 - Constitutional no acute distress - Routine HEENT Exam Eye: Present: PERRL ENT: Present: mucous membranes moist - Routine Neck Exam Present: supple - Routine Respiratory Exam Present: CTA bilaterally - Routine Cardiovascular Exam Present: S1, S2 - Routine Abdominal Exam Present: soft, normoactive bowel sounds, tenderness - Routine Extremities Exam Present: pulses intact - Routine Skin Exam Present: dry, warm - Routine Neurological Exam Present: alert, oriented X3 Results Procedures completed during hospitalization: ERCP 09/30 Labs on day of discharge: Labs from last 24 hours 10/01/18 10/01/18 09:44 09:44 WBC 5.2 RBC 3.40 L Hgb 10.7 L Hct 31.8 L MCV 93.5 MCH 31.5 MCHC 33.7 RDW 14.7 Plt Count 190 MPV 7.9 Neut % (Auto) 65.3 Lymph % (Auto) 21.8 [place] % (Auto) 11.1 H Eos % (Auto) 1.1 Baso % (Auto) 0.7 Neut # (Auto) 3.4 Lymph # (Auto) 1.1 [place] # (Auto) 0.6 Eos # (Auto) 0.1 Baso # (Auto) 0.0 WBC Differential . Differential Comment Auto diff final Sodium 140 Potassium 3.7 Chloride 104 Carbon Dioxide 28.2 Anion Gap 8 BUN 7 Creatinine 1.00 Estimated GFR 53 L Random Glucose 133 H Calcium 8.3 L Total Bilirubin 0.7 AST 43 H ALT 85 H Alkaline Phosphatase 395 H Total Protein 6.2 L Albumin 2.6 L Lipase 54 L - Impressions ITS Impressions Abdomen/Pelvis CT 09/26/18 14:46 CONCLUSION: 1. Round hyperdensity in the expected region of the distal common bile duct measuring 16 mm consistent with probable choledocholithiasis. ERCP would be helpful for further evaluation and possible treatment of this finding if clinically indicated. 2. Dilatation and pneumobilia involving the central intrahepatic and extrahepatic dilatation is seen. 3. Multiple calcified nonobstructing left renal calculi. 4. Bilateral renal cysts. 5. Small umbilical hernia. 6. Uncomplicated colonic diverticulosis. 7. Degenerative changes and scoliosis of the thoracolumbar spine are noted. 8. Grade I anterolisthesis of L5 in relation to S1. 9. Degenerative changes involving the hips are noted bilaterally. 10. Coronary artery calcifications. 11. Chronic interstitial changes involving the visualized lung bases. Chest X-Ray 09/26/18 14:46 CONCLUSION: 1. No acute cardiopulmonary disease. 2. Left-sided pacemaker. Gallbladder Ultrasound 09/26/18 15:39 CONCLUSION: 1. The common bile duct is dilated to 14 mm, though the distal common bile duct cannot be visualized due to shadowing from bowel gas. Recommend consideration for ERCP given the suspicion for choledocholithiasis based on CT. 2. Cholecystectomy. 3. Right upper pole renal cyst. GI Procedure 09/30/18 00:00 CONCLUSION: Stent placement as above. Discharge Plan - Discharge Disposition Patient Disposition: 03 Discharge to SNF - Discharge Condition Condition: Good - Discharge Order Discharge Orders: Discharge Order (Routine); Ordered 10/02/18 Ordered By: Anjelica Galo ED Use Only Admit Order (Routine); Ordered 09/26/18 Ordered By: Nilsa Bhandari - Discharge Details Anticipated Discharge Date: 10/02/18 - Physicians Team Primary Care Provider: UNKNOWN, Attending Provider: Luis Fernando Galdamez Other Providers: Prasanth Duval MD ; [facility] ; Scarlett Parada MD ; [facility]
[2018-10-02 12:33] VITALS: BP 126/61; PULSE 58; TEMP 97.9
== END 2018-10-02 13:58 | DRG 395 ==
LOC: NEPC 14:10 → NEDA 17:02 → N07 20:36
PROVIDERS: ADMIT Family Medicine; ATTEND Family Medicine
CPT/HCPCS: 71010; 71045; 74176; 74330; 76705; 80053; 81001; 82550; 83690; 83735; 84484; 85025; 85610; 85730; 93005; 99285; C1769; C2625; J2543; J7040; P9612